=== PATIENT | female | born 1990 ===

== ENCOUNTER 2021-04-17 05:46 | Inpatient (IN) | payer SELFPAY ==
--- NOTE | 2021-04-17 06:19 | Emergency Department Report ---
ED General Adult HPI - General Chief complaint: Dyspnea/Respdistress Stated complaint: SOB, COVID+ TUESDAY Time Seen by Provider: 04/17/21 06:14 Source: patient Mode of arrival: Ambulatory Limitations: No Limitations - History of Present Illness Initial comments: Patient presents to the emergency department the chief complaint of increased shortness of breath for the last 3 days. Patient also complains of a cough but denies a fever. Patient states she is Covid positive and tested positive on Tuesday. Patient denies chest pain, carmen pain, headache. The patient is O2 sats are 89% on room air upon arrival. Oxygen was applied via nasal cannula. -: Gradual Severity scale (0 -10): 0 Consistency: constant Improves with: none Worsens with: movement Associated Symptoms: denies other symptoms Treatments Prior to Arrival: none - Related Data Allergies Allergy/AdvReac Type Severity Reaction Status Date / Time acetaminophen [From Tylenol] Allergy Unknown Verified 04/17/21 07:22 sumatriptan [From Imitrex] Allergy Unknown Verified 04/17/21 07:22 ED Review of Systems ROS: Stated complaint: SOB, COVID+ TUESDAY Other details as noted in HPI Comment: All other systems reviewed and negative Constitutional: denies: chills, fever Eyes: denies: eye pain, eye discharge, vision change ENT: denies: ear pain, throat pain Respiratory: shortness of breath. denies: cough, wheezing Cardiovascular: denies: chest pain, palpitations Endocrine: no symptoms reported Gastrointestinal: denies: abdominal pain, nausea, diarrhea Genitourinary: denies: urgency, dysuria, discharge Musculoskeletal: denies: back pain, joint swelling, arthralgia Skin: denies: rash, lesions Neurological: denies: headache, weakness, paresthesias Psychiatric: denies: anxiety, depression Hematological/Lymphatic: denies: easy bleeding, easy bruising ED Past Medical Hx - Past Medical History Previous Medical History?: No - Surgical History Past Surgical History?: No - Social History Smoking Status: Never Smoker ED Physical Exam - General Limitations: No Limitations General appearance: alert, in no apparent distress - Head Head exam: Present: atraumatic, normocephalic - Eye Eye exam: Present: normal appearance - ENT ENT exam: Present: mucous membranes moist - Neck Neck exam: Present: normal inspection - Respiratory Respiratory exam: Present: decreased breath sounds, other (Patient is tachypneic on exam). Absent: respiratory distress - Cardiovascular Cardiovascular Exam: Present: normal rhythm, tachycardia. Absent: systolic murmur, diastolic murmur, rubs, gallop - GI/Abdominal GI/Abdominal exam: Present: soft, normal bowel sounds. Absent: distended, tenderness - Extremities Exam Extremities exam: Present: normal inspection - Back Exam Back exam: Present: normal inspection - Neurological Exam Neurological exam: Present: alert, oriented X3, CN II-XII intact. Absent: motor sensory deficit - Psychiatric Psychiatric exam: Present: normal affect, normal mood - Skin Skin exam: Present: warm, dry, intact, normal color. Absent: rash ED Course Vital Signs 04/17/21 04/17/21 04/17/21 05:51 06:03 06:07 Temperature 98.3 F Pulse Rate 121 H 121 H Respiratory 28 H 31 H 37 H Rate Blood Pressure 154/91 106/62 O2 Sat by Pulse 92 95 Oximetry 04/17/21 04/17/21 04/17/21 06:15 06:31 06:45 Temperature Pulse Rate 111 H 118 H 116 H Respiratory 20 19 30 H Rate Blood Pressure 106/77 116/77 120/79 O2 Sat by Pulse 97 97 97 Oximetry 04/17/21 04/17/21 04/17/21 07:01 07:15 07:31 Temperature Pulse Rate 104 H 109 H 109 H Respiratory 31 H 11 L 28 H Rate Blood Pressure 115/82 116/77 134/79 O2 Sat by Pulse 96 97 96 Oximetry 04/17/21 04/17/21 04/17/21 07:45 08:01 08:15 Temperature Pulse Rate 105 H 103 H 101 H Respiratory 29 H 20 20 Rate Blood Pressure 121/82 118/81 119/81 O2 Sat by Pulse 96 96 97 Oximetry 04/17/21 04/17/21 04/17/21 08:31 08:45 09:00 Temperature Pulse Rate 101 H 103 H 103 H Respiratory 28 H 28 H 27 H Rate Blood Pressure 123/82 128/80 128/80 O2 Sat by Pulse 95 96 95 Oximetry 04/17/21 04/17/21 04/17/21 09:17 09:31 09:45 Temperature Pulse Rate 104 H 103 H Respiratory 13 18 Rate Blood Pressure 119/82 119/82 124/82 O2 Sat by Pulse 95 95 95 Oximetry 04/17/21 04/17/21 04/17/21 10:01 10:15 10:31 Temperature Pulse Rate 99 H 90 89 Respiratory 22 18 18 Rate Blood Pressure 119/82 115/85 112/66 O2 Sat by Pulse 97 96 97 Oximetry ED Medical Decision Making - Lab Data Result diagrams: 04/17/21 07:07 04/17/21 07:07 Lab Results 04/17/21 04/17/21 04/17/21 Range/Units 06:58 07:07 07:07 WBC 4.4 L (4.5-11.0) K/mm3 RBC 5.51 H (3.65-5.03) M/mm3 Hgb 15.8 H (10.1-14.3) gm/dl Hct 48.3 H (30.3-42.9) % MCV 88 (79-97) fl MCH 29 (28-32) pg MCHC 33 (30-34) % RDW 13.4 (13.2-15.2) % Plt Count 168 (140-440) K/mm3 Lymph % (Auto) 32.9 (13.4-35.0) % [place] % (Auto) 10.9 H (0.0-7.3) % Eos % (Auto) 0.0 (0.0-4.3) % Baso % (Auto) 0.3 (0.0-1.8) % Lymph # (Auto) 1.5 (1.2-5.4) K/mm3 [place] # (Auto) 0.5 (0.0-0.8) K/mm3 Eos # (Auto) 0.0 (0.0-0.4) K/mm3 Baso # (Auto) 0.0 (0.0-0.1) K/mm3 Seg Neutrophils % 55.9 (40.0-70.0) % Seg Neutrophils # 2.5 (1.8-7.7) K/mm3 PT 13.2 (12.2-14.9) Sec. INR 0.90 (0.87-1.13) APTT 31.5 (24.2-36.6) Sec. Sodium (137-145) mmol/L Potassium (3.6-5.0) mmol/L Chloride (98-107) mmol/L Carbon Dioxide (22-30) mmol/L Anion Gap mmol/L BUN (7-17) mg/dL Creatinine (0.6-1.2) mg/dL Estimated GFR ml/min BUN/Creatinine Ratio % Glucose (65-100) mg/dL Lactic Acid (0.7-2.0) mmol/L Calcium (8.4-10.2) mg/dL Magnesium (1.7-2.3) mg/dL Total Bilirubin (0.1-1.2) mg/dL AST (5-40) units/L ALT (7-56) units/L Alkaline Phosphatase (35-129) units/L Troponin T (0.00-0.029) ng/mL NT-Pro-B Natriuret Pep (0-450) pg/mL Total Protein (6.3-8.2) g/dL Albumin (3.9-5) g/dL Albumin/Globulin Ratio % Urine Color [place] (Yellow) Urine Turbidity Slightly-cloudy (Clear) Urine pH 6.0 (5.0-7.0) Ur Specific [place] 1.024 (1.003-1.030) Urine Protein 100 mg/dl (Negative) mg/dL Urine Glucose (UA) Neg (Negative) mg/dL Urine Ketones Tr (Negative) mg/dL Urine Blood Neg (Negative) Urine Nitrite Neg (Negative) Urine Bilirubin Neg (Negative) Urine Urobilinogen < 2.0 (<2.0) mg/dL Ur Leukocyte Esterase Neg (Negative) Urine WBC (Auto) 14.0 H (0.0-6.0) /HPF Urine RBC (Auto) 26.0 (0.0-6.0) /HPF U Epithel Cells (Auto) 24.0 H (0-13.0) /HPF Urine Bacteria (Auto) 2+ (Negative) /HPF Urine Yeast (Budding) Few /HPF 04/17/21 04/17/21 04/17/21 Range/Units 07:07 07:07 07:07 WBC (4.5-11.0) K/mm3 RBC (3.65-5.03) M/mm3 Hgb (10.1-14.3) gm/dl Hct (30.3-42.9) % MCV (79-97) fl MCH (28-32) pg MCHC (30-34) % RDW (13.2-15.2) % Plt Count (140-440) K/mm3 Lymph % (Auto) (13.4-35.0) % [place] % (Auto) (0.0-7.3) % Eos % (Auto) (0.0-4.3) % Baso % (Auto) (0.0-1.8) % Lymph # (Auto) (1.2-5.4) K/mm3 [place] # (Auto) (0.0-0.8) K/mm3 Eos # (Auto) (0.0-0.4) K/mm3 Baso # (Auto) (0.0-0.1) K/mm3 Seg Neutrophils % (40.0-70.0) % Seg Neutrophils # (1.8-7.7) K/mm3 PT (12.2-14.9) Sec. INR (0.87-1.13) APTT (24.2-36.6) Sec. Sodium 139 (137-145) mmol/L Potassium 4.4 (3.6-5.0) mmol/L Chloride 99.5 (98-107) mmol/L Carbon Dioxide 26 (22-30) mmol/L Anion Gap 18 mmol/L BUN 14 (7-17) mg/dL Creatinine 0.7 (0.6-1.2) mg/dL Estimated GFR > 60 ml/min BUN/Creatinine Ratio 20 % Glucose 128 H (65-100) mg/dL Lactic Acid 1.20 (0.7-2.0) mmol/L Calcium 8.8 (8.4-10.2) mg/dL Magnesium 2.10 (1.7-2.3) mg/dL Total Bilirubin 0.30 (0.1-1.2) mg/dL AST 42 H (5-40) units/L ALT 31 (7-56) units/L Alkaline Phosphatase 66 (35-129) units/L Troponin T < 0.010 (0.00-0.029) ng/mL NT-Pro-B Natriuret Pep < 5 (0-450) pg/mL Total Protein 8.2 (6.3-8.2) g/dL Albumin 4.1 (3.9-5) g/dL Albumin/Globulin Ratio 1.0 % Urine Color (Yellow) Urine Turbidity (Clear) Urine pH (5.0-7.0) Ur Specific [place] (1.003-1.030) Urine Protein (Negative) mg/dL Urine Glucose (UA) (Negative) mg/dL Urine Ketones (Negative) mg/dL Urine Blood (Negative) Urine Nitrite (Negative) Urine Bilirubin (Negative) Urine Urobilinogen (<2.0) mg/dL Ur Leukocyte Esterase (Negative) Urine WBC (Auto) (0.0-6.0) /HPF Urine RBC (Auto) (0.0-6.0) /HPF U Epithel Cells (Auto) (0-13.0) /HPF Urine Bacteria (Auto) (Negative) /HPF Urine Yeast (Budding) /HPF - Radiology Data Radiology results: report reviewed - Medical Decision Making Results discussed with patient Patient was given IV antibiotics Patient was placed on supplemental oxygen for low O2 sat Critical Care Time: Yes Critical care time in (mins) excluding proc time.: 35 Critical care attestation.: If time is entered above; I have spent that time in minutes in the direct care of this critically ill patient, excluding procedure time. ED Disposition Clinical Impression: Pneumonia due to COVID-19 virus, Hypoxia Disposition: 01 HOME / SELF CARE / HOMELESS Is pt being admited?: No Does the pt Need Aspirin: No Condition: Stable Instructions: Bacterial Pneumonia (ED)
--- NOTE | 2021-04-17 06:43 | XRay Report ---
CHEST 1 VIEW 04/17/2021 6:33 AM INDICATION / CLINICAL INFORMATION: Dyspnea. COMPARISON: None available. FINDINGS: SUPPORT DEVICES: None. HEART / MEDIASTINUM: No significant abnormality. LUNGS / PLEURA: Mild increased pulmonary vascularity with lower lobe atelectasis in the left No pneum othorax. Signer Name: Lee Best MD Signed: 04/17/2021 6:39 AM Workstation Name: [id number]
[2021-04-17] MEDS ORDERED: ONDANSETRON 4 MG/2 ML INJ IV ONE (07:18)
[2021-04-17 07:23] LABS: Bacteria,Urine 2+ /HPF (Negative); Bilirubin,Urine NEG (Negative); Blood,Urine NEG (Negative); Color,Urine Amber (Yellow); Urobilinogen,Urine < 2.0 mg/dL (<2.0)
[2021-04-17 08:01] LABS: Basophils % (Auto) 0.3 % (0.0-1.8); Hematocrit 48.3 % (30.3-42.9); Hemoglobin 15.8 gm/dl (10.1-14.3); Lymphocytes # (Auto) 1.5 K/mm3 (1.2-5.4); Lymphocytes % (Auto) 32.9 % (13.4-35.0); Mean Corpuscular HGB Conc 33 % (30-34); Mean Corpuscular Volume 88 fl (79-97); Monocytes # (Auto) 0.5 K/mm3 (0.0-0.8); Monocytes % (Auto) 10.9 % (0.0-7.3); Platelet Count 168 K/mm3 (140-440); Red Blood Count 5.51 M/mm3 (3.65-5.03); Red Cell Distribution Width 13.4 % (13.2-15.2)
[2021-04-17 08:10] LABS: INR 0.9 (0.87-1.13)
[2021-04-17 08:11] LABS: Partial Thromboplastin Time 31.5 Sec. (24.2-36.6)
[2021-04-17 08:25] LABS: Alanine Aminotransferase 31 units/L (7-56); Albumin 4.1 g/dL (3.9-5); Blood Urea Nitrogen 14 mg/dL (7-17); Calcium 8.8 mg/dL (8.4-10.2); Hemolysis Index 15
[2021-04-17 08:31] LABS: BUN/Creatinine Ratio 20
--- NOTE | 2021-04-17 09:44 | Cat Scan Report ---
CTA CHEST WITH CONTRAST INDICATION / CLINICAL INFORMATION: Shortness of breath / Chest pain / possible P.E. OMNI 350 100 ML. TECHNIQUE: Axial CT images were obtained through the chest after injection of 100 cc of Omnipaque 350 IV contrast. 3 plane MIP and/or 3D reconstructions were produced. All CT scans at this location are performed using CT dose reduction for ALARA by means of automated exposure control. COMPARISON: None available. FINDINGS: PULMONARY ARTERIES: No pulmonary emboli. THORACIC AORTA: No significant abnormality. HEART: No significant abnormality. CORONARY ARTERY CALCIFICATION: None. MEDIASTINUM / CARMEN: No significant abnormality. PLEURA: No pleural effusion. No pneumothorax. LUNGS: There is bilateral peripheral airspace opacity in the groundglass density with more focal cons olidation in the dependent lung bases. ADDITIONAL FINDINGS: None. UPPER ABDOMEN: No acute findings. SKELETAL STRUCTURES: No significant osseous abnormality. IMPRESSION: 1. No CT evidence for pulmonary embolism. 2. Predominantly peripheral parenchymal opacity in the lungs. This could represent pneumonitis includ ing atypical or viral pneumonia. Other etiologies such as eosinophilic lung disease is also considere d differential. Signer Name: Cornelio Haddad MD Signed: 04/17/2021 9:40 AM Workstation Name: [id number]
[2021-04-17] MEDS ORDERED: AZITHROMYCIN/NS 500 MG/250 ML 500 MG/250 ML BAG IV ONE (10:32)
[2021-04-17] MEDS ORDERED: cefTRIAXone/NS 1 GM/50 ML 1 GM/50 ML BAG IV ONE (10:33)
[2021-04-17] MEDS ORDERED: MORPHINE 4 MG/1 ML INJ IV PRN (11:11)
[2021-04-17] MEDS ORDERED: ACETAMINOPHEN 325 MG TAB PO PRN (11:11)
[2021-04-17] MEDS ORDERED: DOCUSATE SODIUM 100 MG CAP PO PRN (11:11)
[2021-04-17] MEDS ORDERED: HYDROcodone/ACETAMINOPHEN 5-325 MG TAB PO PRN (11:11)
[2021-04-17] MEDS ORDERED: SENNOSIDES 8.6 MG TAB PO PRN (11:11)
[2021-04-17] MEDS ORDERED: DEXTROSE 50% IN WATER (25GM) 50 ML SYRINGE IV PRN (11:11)
[2021-04-17] MEDS: INSULIN REGULAR, HUMAN 100 UNITS/1 ML SUB-Q SCH ×3 (12:03→23:27)
--- NOTE | 2021-04-17 14:10 | Consultation ---
History of Present Illness - Reason for Consult Consult date: 04/17/21 - History of Present Illness 30-year-old female past medical history morbid obesity, migraines presented to hospital complaining of shortness of breath. This began approximate 3 days prior to admission and is associated with cough. She denies fever. She knows she tested positive for Covid 5 days prior to admission. She otherwise denies any symptoms, and to be hypoxic arrival to the emergency room. Afebrile, white count 4.4. Normal renal function, pending procalcitonin. Currently receiving ceftriaxone, azithromycin, Decadron. Imaging personally reviewed: Chest CTA: No evidence of pulmonary embolism, probably peripheral parenchymal opacity in the lungs. Review of systems: Deferred to reduce to the risk of transmission of COVID-19 Past History Past Medical History: other (See HPI) Past Surgical History: No surgical history Social history: no significant social history Family history: CAD Medications and Allergies Allergies Allergy/AdvReac Type Severity Reaction Status Date / Time acetaminophen [From Tylenol] Allergy Unknown Verified 04/17/21 07:22 sumatriptan [From Imitrex] Allergy Unknown Verified 04/17/21 07:22 Active Meds: Active Medications Acetaminophen (Acetaminophen 325 Mg Tab) 650 mg PO Q4H PRN PRN Reason: Pain MILD(1-3)/Fever >100.5/PEREZ Hydrocodone Bitart/Acetaminophen (Hydrocodone/Acetaminophen 5-325 Mg Tab) 2 each PO Q6H PRN PRN Reason: Pain, Moderate (4-6) Azithromycin (Azithromycin 250 Mg Tab) 500 mg PO DAILY MATTHIAS; Protocol Stop: 04/20/21 09:59 Dexamethasone (Dexamethasone 4 Mg Tab) 8 mg PO DAILY MATTHIAS Stop: 04/26/21 10:01 Dextrose (Dextrose 50% In Water (25gm) 50 Ml Syringe) 50 ml IV Q30MIN PRN; Protocol PRN Reason: Hypoglycemia Docusate Sodium (Docusate Sodium 100 Mg Cap) 100 mg PO BID PRN PRN Reason: Constipation Enoxaparin Sodium (Enoxaparin 40 Mg/0.4 Ml Inj) 40 mg SUB-Q QDAY MATTHIAS Famotidine (Famotidine 20 Mg Tab) 20 mg PO BID MATTHIAS Ceftriaxone Sodium (Rocephin/Ns 1 Gm/50 Ml) 1 gm in 50 mls @ 100 mls/hr IV Q24H MATTHIAS; Protocol Stop: 04/20/21 11:59 Insulin Human Regular (Insulin Regular, Human 100 Units/1 Ml) 0 units SUB-Q ACHS MATTHIAS; Protocol Last Admin: 04/17/21 12:03 Dose: Not Given Documented by: Morphine Sulfate (Morphine 4 Mg/1 Ml Inj) 4 mg IV Q4H PRN PRN Reason: Pain , Severe (7-10) Ondansetron HCl (Ondansetron 4 Mg/2 Ml Inj) 4 mg IV Q8H PRN PRN Reason: Nausea And Vomiting Senna (Sennosides 8.6 Mg Tab) 8.6 mg PO Q12HR PRN PRN Reason: Constipation Sodium Chloride (Sodium Chloride 0.9% 10 Ml Flush Syringe) 10 ml IV BID MATTHIAS Sodium Chloride (Sodium Chloride 0.9% 10 Ml Flush Syringe) 10 ml IV PRN PRN PRN Reason: LINE FLUSH Physical Examination - Physical Exam Narrative exam: Physical exam deferred to reduce risk of transmission of COVID-19. Please refer to primary team's note. - Constitutional Vitals: Vital Signs Temp Pulse Resp BP Pulse Ox 98.3 F 102 H 24 107/86 95 04/17/21 05:51 04/17/21 13:01 04/17/21 13:01 04/17/21 13:01 04/17/21 13:01 Temperature -Last 24 Hours Temperature 98.3 F Results - Labs CBC & Chem 7: 04/17/21 07:07 04/17/21 07:07 Labs: Abnormal lab results 04/17/21 04/17/21 04/17/21 Range/Units 06:58 07:07 07:07 WBC 4.4 L (4.5-11.0) K/mm3 RBC 5.51 H (3.65-5.03) M/mm3 Hgb 15.8 H (10.1-14.3) gm/dl Hct 48.3 H (30.3-42.9) % [place] % (Auto) 10.9 H (0.0-7.3) % Glucose 128 H (65-100) mg/dL AST 42 H (5-40) units/L Urine WBC (Auto) 14.0 H (0.0-6.0) /HPF U Epithel Cells (Auto) 24.0 H (0-13.0) /HPF Assessment and Plan Cultures: Blood culture no growth so far A/P: 30-year-old female past medical history morbid obesity presented to the hospital complaining of shortness of breath with associated no patient COVID-19 diagnosis. #Severe COVID-19 pneumonia: Patient presented with a week of symptoms, chest x- ray with diffuse bilateral infiltrates. Inflammatory markers elevated #Acute hypoxemic respiratory failure: Likely secondary to COVID-19 infection. Currently on NC #Morbid obesity: associated with worse COVID outcomes. Recommendations: -Dexamethasone 6 mg IV/PO daily for 10 days -Remdesivir 200 mg IV q day x 1 followed by 100 mg IV q day x 4 days -Obtain q48-72h inflammatory markers - ferritin, Ddimer, CRP, LDH -Continue ceftriaxone 2 gm IV qday and azithromycin 500 mg PO qday, if procalcitonin <0.25 ng/mL stop antibiotics -Anticoagulation per hospital protocol -Proning as able Thank you for the consult, we will continue to follow. MD Shakila Kerns [facility] O: [phone] F: [phone]
--- NOTE | 2021-04-17 14:32 | History and Physical Report ---
History of Present Illness Date of examination: 04/17/21 Date of admission: 04/17/21 11:12 Chief complaint: Shortness of breath History of present illness: Patient is a 30-year-old female with no significant past medical history except morbid obesity who presented with worsening dyspnea at rest after testing positive for COVID-19 on 04/12/2021. The patient has not been vaccinated for COVID-19. The patient endorses managing her symptoms at home that included fa tigue, fevers (no chills), nausea and vomiting, mild abdominal pain, lightheadedness, and nonproductive cough. The patient presented for worsening lightheadedness and presyncopal symptoms. The patient's family members have also tested positive for COVID-19 and have been quarantining at home. Patient denies loss of smell or taste. In the ED the patient was found to be hypoxic and was placed on 3 L nasal cannula. Chest x-ray revealed diffuse pulmonary congestion (interstitium and vasculature) in addition to atelectasis. CTA chest was performed and was negative for pulmonary embolism but did reveal peripheral opacities. The patient received IV azithromycin 500 mg and Rocephin 1 g in the ED. Past History Past Medical History: other (See HPI) Past Surgical History: No surgical history Social history: no significant social history, full code Family history: CAD, diabetes, hypertension Medications and Allergies Allergies Allergy/AdvReac Type Severity Reaction Status Date / Time acetaminophen [From Tylenol] Allergy Unknown Verified 04/17/21 07:22 sumatriptan [From Imitrex] Allergy Unknown Verified 04/17/21 07:22 Active Meds: Active Medications Acetaminophen (Acetaminophen 325 Mg Tab) 650 mg PO Q4H PRN PRN Reason: Pain MILD(1-3)/Fever >100.5/PEREZ Hydrocodone Bitart/Acetaminophen (Hydrocodone/Acetaminophen 5-325 Mg Tab) 2 each PO Q6H PRN PRN Reason: Pain, Moderate (4-6) Azithromycin (Azithromycin 250 Mg Tab) 500 mg PO DAILY MATTHIAS; Protocol Stop: 04/20/21 09:59 Dexamethasone (Dexamethasone 4 Mg Tab) 8 mg PO DAILY MATTHIAS Stop: 04/26/21 10:01 Dextrose (Dextrose 50% In Water (25gm) 50 Ml Syringe) 50 ml IV Q30MIN PRN; Protocol PRN Reason: Hypoglycemia Docusate Sodium (Docusate Sodium 100 Mg Cap) 100 mg PO BID PRN PRN Reason: Constipation Enoxaparin Sodium (Enoxaparin 40 Mg/0.4 Ml Inj) 40 mg SUB-Q QDAY REPLACED BY [facility] Famotidine (Famotidine 20 Mg Tab) 20 mg PO BID REPLACED BY [facility] Ceftriaxone Sodium (Rocephin/Ns 1 Gm/50 Ml) 1 gm in 50 mls @ 100 mls/hr IV Q24H REPLACED BY [facility]; Protocol Stop: 04/20/21 11:59 REMDESIVIR 200 mg/ Sodium (Chloride) 250 mls @ 500 mls/hr IV ONCE ONE Stop: 04/17/21 14:39 REMDESIVIR 100 mg/ Sodium (Chloride) 250 mls @ 500 mls/hr IV Q24HR@2100 MATTHIAS Stop: 04/21/21 21:29 Insulin Human Regular (Insulin Regular, Human 100 Units/1 Ml) 0 units SUB-Q ACHS REPLACED BY [facility]; Protocol Last Admin: 04/17/21 12:03 Dose: Not Given Documented by: Morphine Sulfate (Morphine 4 Mg/1 Ml Inj) 4 mg IV Q4H PRN PRN Reason: Pain , Severe (7-10) Ondansetron HCl (Ondansetron 4 Mg/2 Ml Inj) 4 mg IV Q8H PRN PRN Reason: Nausea And Vomiting Senna (Sennosides 8.6 Mg Tab) 8.6 mg PO Q12HR PRN PRN Reason: Constipation Sodium Chloride (Sodium Chloride 0.9% 10 Ml Flush Syringe) 10 ml IV BID REPLACED BY [facility] Sodium Chloride (Sodium Chloride 0.9% 10 Ml Flush Syringe) 10 ml IV PRN PRN PRN Reason: LINE FLUSH Sodium Chloride (Sodium Chloride 0.9% 50 Ml Ivpb) 50 ml IV Q24HR@2100 MATTHIAS Stop: 04/21/21 21:01 Review of Systems All systems: negative Constitutional: fever, fatigue, weakness Cardiovascular: lightheadedness, shortness of breath, other (Chest pressure; presyncope) Respiratory: cough, shortness of breath Gastrointestinal: nausea, vomiting Exam - Constitutional Vitals: Temp Pulse Resp BP Pulse Ox 98.3 F 100 H 20 116/78 96 04/17/21 05:51 04/17/21 14:15 04/17/21 14:15 04/17/21 14:15 04/17/21 14:15 General appearance: Present: no acute distress, well-nourished, obese - EENT Eyes: Present: PERRL, EOM intact ENT: hearing intact, clear oral mucosa, dentition normal - Neck Neck: Present: supple, normal ROM - Respiratory Respiratory effort: normal (Currently on 3 L nasal cannula) Respiratory: bilateral: diminished - Cardiovascular Rhythm: regular Heart Sounds: Present: S1 & S2 - Extremities Extremities: no ischemia, pulses intact, pulses symmetrical, No edema, normal temperature, normal color Peripheral Pulses: within normal limits - Abdominal General gastrointestinal: Present: soft, non-tender, non-distended, normal bowel sounds Female genitourinary: Present: deferred - Rectal Rectal Exam: deferred - Integumentary Integumentary: Present: clear, warm, dry - Musculoskeletal Musculoskeletal: strength equal bilaterally - Psychiatric Psychiatric: appropriate mood/affect, intact judgment & insight, memory intact, cooperative - Neurologic Neurologic: CNII-XII intact, moves all extremities - Allied Health Allied health notes reviewed: nursing HEART Score - HEART Score Troponin: Troponin T < 0.010 ng/mL (0.00-0.029) 04/17/21 07:07 Results - Labs CBC & Chem 7: 04/17/21 07:07 04/17/21 07:07 Labs: Laboratory Last Values WBC 4.4 K/mm3 (4.5-11.0) L 04/17/21 07:07 RBC 5.51 M/mm3 (3.65-5.03) H 04/17/21 07:07 Hgb 15.8 gm/dl (10.1-14.3) H 04/17/21 07:07 Hct 48.3 % (30.3-42.9) H 04/17/21 07:07 MCV 88 fl (79-97) 04/17/21 07:07 MCH 29 pg (28-32) 04/17/21 07:07 MCHC 33 % (30-34) 04/17/21 07:07 RDW 13.4 % (13.2-15.2) 04/17/21 07:07 Plt Count 168 K/mm3 (140-440) 04/17/21 07:07 Lymph % (Auto) 32.9 % (13.4-35.0) 04/17/21 07:07 [place] % (Auto) 10.9 % (0.0-7.3) H 04/17/21 07:07 Eos % (Auto) 0.0 % (0.0-4.3) 04/17/21 07:07 Baso % (Auto) 0.3 % (0.0-1.8) 04/17/21 07:07 Lymph # (Auto) 1.5 K/mm3 (1.2-5.4) 04/17/21 07:07 Ector # (Auto) 0.5 K/mm3 (0.0-0.8) 04/17/21 07:07 Eos # (Auto) 0.0 K/mm3 (0.0-0.4) 04/17/21 07:07 Baso # (Auto) 0.0 K/mm3 (0.0-0.1) 04/17/21 07:07 Seg Neutrophils % 55.9 % (40.0-70.0) 04/17/21 07:07 Seg Neutrophils # 2.5 K/mm3 (1.8-7.7) 04/17/21 07:07 PT 13.2 Sec. (12.2-14.9) 04/17/21 07:07 INR 0.90 (0.87-1.13) 04/17/21 07:07 APTT 31.5 Sec. (24.2-36.6) 04/17/21 07:07 Sodium 139 mmol/L (137-145) 04/17/21 07:07 Potassium 4.4 mmol/L (3.6-5.0) 04/17/21 07:07 Chloride 99.5 mmol/L (98-107) 04/17/21 07:07 Carbon Dioxide 26 mmol/L (22-30) 04/17/21 07:07 Anion Gap 18 mmol/L 04/17/21 07:07 BUN 14 mg/dL (7-17) 04/17/21 07:07 Creatinine 0.7 mg/dL (0.6-1.2) 04/17/21 07:07 Estimated GFR > 60 ml/min 04/17/21 07:07 BUN/Creatinine Ratio 20 % 04/17/21 07:07 Glucose 128 mg/dL (65-100) H 04/17/21 07:07 Lactic Acid 1.20 mmol/L (0.7-2.0) 04/17/21 07:07 Calcium 8.8 mg/dL (8.4-10.2) 04/17/21 07:07 Magnesium 2.10 mg/dL (1.7-2.3) 04/17/21 07:07 Total Bilirubin 0.30 mg/dL (0.1-1.2) 04/17/21 07:07 AST 42 units/L (5-40) H 04/17/21 07:07 ALT 31 units/L (7-56) 04/17/21 07:07 Alkaline Phosphatase 66 units/L (35-129) 04/17/21 07:07 Troponin T < 0.010 ng/mL (0.00-0.029) 04/17/21 07:07 NT-Pro-B Natriuret Pep < 5 pg/mL (0-450) 04/17/21 07:07 Total Protein 8.2 g/dL (6.3-8.2) 04/17/21 07:07 Albumin 4.1 g/dL (3.9-5) 04/17/21 07:07 Albumin/Globulin Ratio 1.0 % 04/17/21 07:07 Urine Color Francheska (Yellow) 04/17/21 06:58 Urine Turbidity Slightly-cloudy (Clear) 04/17/21 06:58 Urine pH 6.0 (5.0-7.0) 04/17/21 06:58 Ur Specific [place] 1.024 (1.003-1.030) 04/17/21 06:58 Urine Protein 100 mg/dl mg/dL (Negative) 04/17/21 06:58 Urine Glucose (UA) Neg mg/dL (Negative) 04/17/21 06:58 Urine Ketones Tr mg/dL (Negative) 04/17/21 06:58 Urine Blood Neg (Negative) 04/17/21 06:58 Urine Nitrite Neg (Negative) 04/17/21 06:58 Urine Bilirubin Neg (Negative) 04/17/21 06:58 Urine Urobilinogen < 2.0 mg/dL (<2.0) 04/17/21 06:58 Ur Leukocyte Esterase Neg (Negative) 04/17/21 06:58 Urine WBC (Auto) 14.0 /HPF (0.0-6.0) H 04/17/21 06:58 Urine RBC (Auto) 26.0 /HPF (0.0-6.0) 04/17/21 06:58 U Epithel Cells (Auto) 24.0 /HPF (0-13.0) H 04/17/21 06:58 Urine Bacteria (Auto) 2+ /HPF (Negative) 04/17/21 06:58 Urine Yeast (Budding) Few /HPF 04/17/21 06:58 Microbiology: Microbiology 04/17/21 07:07 Peripheral/Venous Blood Culture - Preliminary Culture in Progress 04/17/21 07:07 Peripheral/Venous Blood Culture - Preliminary Culture in Progress Assessment and Plan Assessment and plan: Patient is a 30-year-old female with no significant past medical history except morbid obesity who presented with worsening dyspnea at rest after testing positive for COVID-19 on 04/12/2021. #COVID-19 pneumonia #Acute hypoxic respiratory failure #Possible community-acquired pneumonia -Pending coronavirus PCR -Currently on 3 L nasal cannula. -Chest x-ray revealing pulmonary congestion (interstitium and vasculature) in addition to atelectasis. CTA chest negative for PE but revealing peripheral opacities. -Status post IV azithromycin 500 mg x 1 + Rocephin 1 g x 1 in the ED. Continue p.o. azithromycin 500 mg every 24 hours and Rocephin 1 g every 24 hours for a total of 3-day course (ends 04/19/2021). Can discontinue earlier if procalcitonin is within normal limits. -Blood cultures drawn and ED. -Starting p.o. dexamethasone 8 mg every 24 hours for 10-day course (111/). -Infectious disease consulted; appreciate recs. Starting remdesivir for 5-day course (ends 04/21/2021). -Following ferritin, LDH, CRP, and D-dimer levels -Continue to monitor #Asymptomatic bacteriuria -UA revealing negative nitrites and leukocyte esterase. WBC 14 and 2+ bacteria. -Status post Rocephin 1 g in the ED. Will be treated with Rocephin therapy for presumed community-acquired pneumonia. -Continue to monitor #Hyperglycemia -Glucose 128 -Pending hemoglobin A1c -Continue to monitor #Morbid obesity #Weight loss counseling #Dietary counseling -BMI 41 -Counseled patient about weight loss, dietary changes (lean meats, fresh fruits and vegetables, increased water intake, etc.), and incorporating exercise. Patient expressed understanding. -Time: +15 minutes #Advanced care planning -Disease education conducted, care plan discussed, diagnoses discussed, prognosis discussed, and patient acknowledges understanding with care plan -Time: +20 minutes Advance Directives: No VTE prophylaxis?: Chemical Plan of care discussed with patient/family: Yes
[2021-04-17] MEDS ORDERED: REMDESIVIR 200 MG in SODIUM CHLORIDE 0.9% 250ML 250 ML IV ONE (16:00)
[2021-04-17] MEDS: ONDANSETRON 4 MG/2 ML INJ IV PRN (16:21)
[2021-04-17] MEDS: DEXAMETHASONE 4 MG TAB PO SCH (16:21)
[2021-04-17] MEDS ORDERED: ENOXAPARIN 30 MG/0.3 ML INJ SUB-Q SCH (17:00)
[2021-04-17] MEDS: SODIUM CHLORIDE 0.9% 50 ML IVPB IV SCH (21:06)
[2021-04-17] MEDS: FAMOTIDINE 20 MG TAB PO SCH (23:26)
[2021-04-18] MEDS ORDERED: ALUM-MAG HYDROXIDE-SIMETHICONE 200-200-20MG/5ML ORAL LIQD 30 ML PO PRN (04:45)
[2021-04-18 07:51] LABS: Hematocrit 43.9 % (30.3-42.9); Hemoglobin 14.4 gm/dl (10.1-14.3); Mean Corpuscular HGB Conc 33 % (30-34); Mean Corpuscular Volume 89 fl (79-97); Platelet Count 179 K/mm3 (140-440); Red Blood Count 4.96 M/mm3 (3.65-5.03); Red Cell Distribution Width 13.1 % (13.2-15.2)
[2021-04-18 08:13] LABS: Alanine Aminotransferase 31 units/L (7-56); Albumin 3.8 g/dL (3.9-5); BUN/Creatinine Ratio 28; Blood Urea Nitrogen 14 mg/dL (7-17); Calcium 8.6 mg/dL (8.4-10.2); Hemolysis Index 3
[2021-04-18 08:14] LABS: C-Reactive Protein 1.4 mg/dL (0.00-1.30); Chol/HDL Ratio 3.1 %
[2021-04-18] MEDS: INSULIN REGULAR, HUMAN 100 UNITS/1 ML SUB-Q SCH ×4 (08:47→22:18)
[2021-04-18 09:33] LABS: Band Neutrophils # (Manual) 0.1 K/mm3; Total Cells Counted 100
[2021-04-18 09:34] LABS: Anisocytosis 1+
[2021-04-18] MEDS: DEXAMETHASONE 4 MG TAB PO SCH (11:01)
[2021-04-18] MEDS: AZITHROMYCIN 250 MG TAB PO SCH (11:01)
[2021-04-18] MEDS: ENOXAPARIN 40 MG/0.4 ML INJ SUB-Q SCH (11:01)
[2021-04-18] MEDS: FAMOTIDINE 20 MG TAB PO SCH ×2 (11:02→21:02)
--- NOTE | 2021-04-18 11:34 | Progress Note ---
Assessment and Plan Assessment and plan: Patient is a 30-year-old female with no significant past medical history except morbid obesity who presented with worsening dyspnea at rest after testing positive for COVID-19 on 04/12/2021. #COVID-19 pneumonia #Acute hypoxic respiratory failure-worsening #Possible community-acquired pneumonia -Pending coronavirus PCR -Currently on high flow nasal cannula 15 L -Chest x-ray revealing pulmonary congestion (interstitium and vasculature) in addition to atelectasis. CTA chest negative for PE but revealing peripheral opacities. -Status post IV azithromycin 500 mg x 1 + Rocephin 1 g x 1 in the ED. Continue p.o. azithromycin 500 mg every 24 hours and Rocephin 1 g every 24 hours for a total of 3-day course (ends 04/19/2021). Can discontinue earlier if procalcitonin is within normal limits. -Pending blood cultures drawn from presentation; NG TD x1 day -Continue p.o. dexamethasone 8 mg every 24 hours for 10-day course (111/). -Infectious disease consulted; appreciate recs. Continue remdesivir for 5-day course (ends 04/21/2021). -Following ferritin, LDH, CRP, and D-dimer levels -Continue to monitor #Asymptomatic bacteriuria -UA revealing negative nitrites and leukocyte esterase. WBC 14 and 2+ bacteria. -Status post Rocephin 1 g in the ED. Will be treated with Rocephin therapy for presumed community-acquired pneumonia. -Continue to monitor #Hyperglycemia -Glucose 128 -Pending hemoglobin A1c -Continue to monitor #Morbid obesity #Weight loss counseling #Dietary counseling -BMI 41 -Counseled patient about weight loss, dietary changes (lean meats, fresh fruits and vegetables, increased water intake, etc.), and incorporating exercise. Patient expressed understanding. -Time: +15 minutes #Advanced care planning -Disease education conducted, care plan discussed, diagnoses discussed, prognosis discussed, and patient acknowledges understanding with care plan -Time: +20 minutes Disposition Plan: Continue medical management Total Time Spent with Patient (Minutes): 30 minutes History Interval history: Patient now requires higher amounts of supplemental oxygen. Patient currently on high flow 15 L. Hospitalist Physical - Constitutional Vitals: Temp Pulse Resp BP Pulse Ox 98.1 F 79 18 107/74 94 04/18/21 04:33 04/18/21 04:33 04/18/21 04:41 04/18/21 04:33 04/18/21 04:41 General appearance: Present: no acute distress, well-nourished, obese - EENT Eyes: Present: PERRL, EOM intact ENT: hearing intact, clear oral mucosa, dentition normal - Neck Neck: Present: supple, normal ROM - Respiratory Respiratory effort: normal Respiratory: bilateral: diminished - Cardiovascular Rhythm: regular Heart Sounds: Present: S1 & S2 - Extremities Extremities: no ischemia, pulses intact, pulses symmetrical, No edema, normal temperature, normal color Peripheral Pulses: within normal limits - Abdominal General gastrointestinal: soft, non-tender, non-distended, normal bowel sounds - Integumentary Integumentary: Present: clear, warm, dry - Psychiatric Psychiatric: appropriate mood/affect, intact judgment & insight, memory intact, cooperative - Neurologic Neurologic: CNII-XII intact, moves all extremities - Allied Health Allied health notes reviewed: nursing HEART Score - HEART Score Troponin: Troponin T < 0.010 ng/mL (0.00-0.029) 04/17/21 07:07 Results - Labs CBC & Chem 7: 04/18/21 07:05 04/18/21 07:15 Labs: Laboratory Last Values WBC 2.1 K/mm3 (4.5-11.0) L 04/18/21 07:05 RBC 4.96 M/mm3 (3.65-5.03) 04/18/21 07:05 Hgb 14.4 gm/dl (10.1-14.3) H 04/18/21 07:05 Hct 43.9 % (30.3-42.9) H 04/18/21 07:05 MCV 89 fl (79-97) 04/18/21 07:05 MCH 29 pg (28-32) 04/18/21 07:05 MCHC 33 % (30-34) 04/18/21 07:05 RDW 13.1 % (13.2-15.2) L 04/18/21 07:05 Plt Count 179 K/mm3 (140-440) 04/18/21 07:05 Lymph % (Auto) 32.9 % (13.4-35.0) 04/17/21 07:07 [place] % (Auto) 10.9 % (0.0-7.3) H 04/17/21 07:07 Eos % (Auto) 0.0 % (0.0-4.3) 04/17/21 07:07 Baso % (Auto) 0.3 % (0.0-1.8) 04/17/21 07:07 Lymph # (Auto) 1.5 K/mm3 (1.2-5.4) 04/17/21 07:07 [place] # (Auto) 0.5 K/mm3 (0.0-0.8) 04/17/21 07:07 Eos # (Auto) 0.0 K/mm3 (0.0-0.4) 04/17/21 07:07 Baso # (Auto) 0.0 K/mm3 (0.0-0.1) 04/17/21 07:07 Add Manual Diff Complete 04/18/21 07:05 Total Counted 100 04/18/21 07:05 Seg Neutrophils % 55.9 % (40.0-70.0) 04/17/21 07:07 Seg Neuts % (Manual) 40.0 % (40.0-70.0) 04/18/21 07:05 Band Neutrophils % 3.0 % 04/18/21 07:05 Lymphocytes % (Manual) 44.0 % (13.4-35.0) H 04/18/21 07:05 Monocytes % (Manual) 13.0 % (0.0-7.3) H 04/18/21 07:05 Nucleated RBC % Not Reportable 04/18/21 07:05 Seg Neutrophils # 2.5 K/mm3 (1.8-7.7) 04/17/21 07:07 Seg Neutrophils # Man 0.8 K/mm3 (1.8-7.7) L 04/18/21 07:05 Band Neutrophils # 0.1 K/mm3 04/18/21 07:05 Lymphocytes # (Manual) 0.9 K/mm3 (1.2-5.4) L 04/18/21 07:05 Abs React Lymphs (Man) 0.0 K/mm3 04/18/21 07:05 Monocytes # (Manual) 0.3 K/mm3 (0.0-0.8) 04/18/21 07:05 Eosinophils # (Manual) 0.0 K/mm3 (0.0-0.4) 04/18/21 07:05 Basophils # (Manual) 0.0 K/mm3 (0.0-0.1) 04/18/21 07:05 Metamyelocytes # 0.0 K/mm3 04/18/21 07:05 Myelocytes # 0.0 K/mm3 04/18/21 07:05 Promyelocytes # 0.0 K/mm3 04/18/21 07:05 Blast Cells # 0.0 K/mm3 04/18/21 07:05 WBC Morphology Not Reportable 04/18/21 07:05 Hypersegmented Neuts Not Reportable 04/18/21 07:05 Hyposegmented Neuts Not Reportable 04/18/21 07:05 Hypogranular Neuts Not Reportable 04/18/21 07:05 Smudge Cells Not Reportable 04/18/21 07:05 Toxic Granulation Not Reportable 04/18/21 07:05 Toxic Vacuolation Not Reportable 04/18/21 07:05 Dohle Bodies Not Reportable 04/18/21 07:05 Pelger-Huet Anomaly Not Reportable 04/18/21 07:05 Kenney Rods Not Reportable 04/18/21 07:05 Platelet Estimate Not Reportable 04/18/21 07:05 Clumped Platelets Not Reportable 04/18/21 07:05 Plt Clumps, EDTA Not Reportable 04/18/21 07:05 Large Platelets Not Reportable 04/18/21 07:05 Giant Platelets Not Reportable 04/18/21 07:05 Platelet Satelliting Not Reportable 04/18/21 07:05 Plt Morphology Comment Not Reportable 04/18/21 07:05 RBC Morphology Not Reportable 04/18/21 07:05 Dimorphic RBCs Not Reportable 04/18/21 07:05 Polychromasia Not Reportable 04/18/21 07:05 Hypochromasia Not Reportable 04/18/21 07:05 Poikilocytosis Not Reportable 04/18/21 07:05 Anisocytosis 1+ 04/18/21 07:05 Microcytosis Not Reportable 04/18/21 07:05 Macrocytosis Not Reportable 04/18/21 07:05 Spherocytes Not Reportable 04/18/21 07:05 Pappenheimer Bodies Not Reportable 04/18/21 07:05 Sickle Cells Not Reportable 04/18/21 07:05 Target Cells Not Reportable 04/18/21 07:05 Tear Drop Cells Not Reportable 04/18/21 07:05 Ovalocytes Not Reportable 04/18/21 07:05 Helmet Cells Not Reportable 04/18/21 07:05 Garcia-Canova Bodies Not Reportable 04/18/21 07:05 [employer] Rings Not Reportable 04/18/21 07:05 Yolanda Cells Not Reportable 04/18/21 07:05 Bite Cells Not Reportable 04/18/21 07:05 Crenated Cell Not Reportable 04/18/21 07:05 Elliptocytes Not Reportable 04/18/21 07:05 Acanthocytes (Spur) Not Reportable 04/18/21 07:05 Rouleaux Not Reportable 04/18/21 07:05 Hemoglobin C Crystals Not Reportable 04/18/21 07:05 Schistocytes Not Reportable 04/18/21 07:05 Malaria parasites Not Reportable 04/18/21 07:05 Rodrigo Bodies Not Reportable 04/18/21 07:05 Hem Pathologist Commnt No 04/18/21 07:05 PT 13.2 Sec. (12.2-14.9) 04/17/21 07:07 INR 0.90 (0.87-1.13) 04/17/21 07:07 APTT 31.5 Sec. (24.2-36.6) 04/17/21 07:07 D-Dimer 734.44 ng/mlDDU (0-234) H 04/18/21 07:15 Sodium 138 mmol/L (137-145) 04/18/21 07:15 Potassium 4.3 mmol/L (3.6-5.0) 04/18/21 07:15 Chloride 101.2 mmol/L (98-107) 04/18/21 07:15 Carbon Dioxide 24 mmol/L (22-30) 04/18/21 07:15 Anion Gap 17 mmol/L 04/18/21 07:15 BUN 14 mg/dL (7-17) 04/18/21 07:15 Creatinine 0.5 mg/dL (0.6-1.2) L 04/18/21 07:15 Estimated GFR > 60 ml/min 04/18/21 07:15 BUN/Creatinine Ratio 28 % 04/18/21 07:15 Glucose 135 mg/dL (65-100) H 04/18/21 07:15 POC Glucose 146 mg/dL (70-105) H 04/17/21 23:25 Hemoglobin A1c 6.0 % (4-6) 04/18/21 07:05 Lactic Acid 1.20 mmol/L (0.7-2.0) 04/17/21 07:07 Calcium 8.6 mg/dL (8.4-10.2) 04/18/21 07:15 Phosphorus 3.70 mg/dL (2.5-4.5) 04/18/21 07:05 Magnesium 2.10 mg/dL (1.7-2.3) 04/18/21 07:05 Ferritin 323.6 ng/mL (10.0-200.0) H 04/18/21 07:15 Total Bilirubin 0.30 mg/dL (0.1-1.2) 04/18/21 07:15 AST 36 units/L (5-40) 04/18/21 07:15 ALT 31 units/L (7-56) 04/18/21 07:15 Alkaline Phosphatase 61 units/L (35-129) 04/18/21 07:15 Lactate Dehydrogenase 315 units/L (91-180) H 04/18/21 07:05 Troponin T < 0.010 ng/mL (0.00-0.029) 04/17/21 07:07 C-Reactive Protein 1.40 mg/dL (0.00-1.30) H 04/18/21 07:05 NT-Pro-B Natriuret Pep < 5 pg/mL (0-450) 04/17/21 07:07 Total Protein 7.5 g/dL (6.3-8.2) 04/18/21 07:15 Albumin 3.8 g/dL (3.9-5) L 04/18/21 07:15 Albumin/Globulin Ratio 1.0 % 04/18/21 07:15 Triglycerides 48 mg/dL (2-149) 04/18/21 07:05 Cholesterol 87 mg/dL (50-199) 04/18/21 07:05 LDL Cholesterol Direct 42 mg/dL (50-130) L 04/18/21 07:05 HDL Cholesterol 28 mg/dL (40-59) L 04/18/21 07:05 Cholesterol/HDL Ratio 3.10 % 04/18/21 07:05 Urine Color Francheska (Yellow) 04/17/21 06:58 Urine Turbidity Slightly-cloudy (Clear) 04/17/21 06:58 Urine pH 6.0 (5.0-7.0) 04/17/21 06:58 Ur Specific [place] 1.024 (1.003-1.030) 04/17/21 06:58 Urine Protein 100 mg/dl mg/dL (Negative) 04/17/21 06:58 Urine Glucose (UA) Neg mg/dL (Negative) 04/17/21 06:58 Urine Ketones Tr mg/dL (Negative) 04/17/21 06:58 Urine Blood Neg (Negative) 04/17/21 06:58 Urine Nitrite Neg (Negative) 04/17/21 06:58 Urine Bilirubin Neg (Negative) 04/17/21 06:58 Urine Urobilinogen < 2.0 mg/dL (<2.0) 04/17/21 06:58 Ur Leukocyte Esterase Neg (Negative) 04/17/21 06:58 Urine WBC (Auto) 14.0 /HPF (0.0-6.0) H 04/17/21 06:58 Urine RBC (Auto) 26.0 /HPF (0.0-6.0) 04/17/21 06:58 U Epithel Cells (Auto) 24.0 /HPF (0-13.0) H 04/17/21 06:58 Urine Bacteria (Auto) 2+ /HPF (Negative) 04/17/21 06:58 Urine Yeast (Budding) Few /HPF 04/17/21 06:58 Coronavirus (PCR) Positive (Negative) A 04/17/21 Unknown Microbiology: Microbiology 04/17/21 07:07 Peripheral/Venous Blood Culture - Preliminary NO GROWTH AFTER 24 HOURS 04/17/21 07:07 Peripheral/Venous Blood Culture - Preliminary NO GROWTH AFTER 24 HOURS 04/17/21 Unknown Urine,Clean Catch Urine Culture - Preliminary NO GROWTH AFTER 24 HOURS Colindres/IV: Voiding Method Toilet Active Medications - Current Medications Current Medications: Generic Name Dose Route Start Last Admin Trade Name Freq PRN Reason Stop Dose Admin Al Hydrox/Mg Hydrox/Simethicone 30 ml 04/18/21 04:45 04/18/21 05:28 Alum-Mag Hydroxide-Simethicone [id number] Oral Liqd 30 Ml PO 30 ml Q6H PRN Administration Indigestion Azithromycin 500 mg 04/18/21 10:00 04/18/21 11:01 Azithromycin 250 Mg Tab PO 04/20/21 09:59 500 mg DAILY MATTHIAS Administration Protocol Dexamethasone 8 mg 04/17/21 16:00 04/18/21 11:01 Dexamethasone 4 Mg Tab PO 04/26/21 10:01 8 mg DAILY MATTHIAS Administration Dextrose 50 ml 04/17/21 11:11 Dextrose 50% In Water (25gm) 50 Ml Syringe IV Q30MIN PRN Hypoglycemia Protocol Docusate Sodium 100 mg 04/17/21 11:11 Docusate Sodium 100 Mg Cap PO BID PRN Constipation Enoxaparin Sodium 40 mg 04/18/21 10:00 04/18/21 11:01 Enoxaparin 40 Mg/0.4 Ml Inj SUB-Q 40 mg QDAY MATTHIAS Administration Famotidine 20 mg 04/17/21 22:00 04/18/21 11:02 Famotidine 20 Mg Tab PO 20 mg BID MATTHIAS Administration Ceftriaxone Sodium 1 gm in 50 mls @ 100 mls/hr 04/18/21 12:00 Rocephin/Ns 1 Gm/50 Ml IV 04/20/21 11:59 Q24H [facility] Protocol REMDESIVIR 100 mg/ Sodium 250 mls @ 500 mls/hr 04/18/21 21:00 Chloride IV 04/21/21 21:29 Q24HR@2100 [facility] Insulin Human Regular 0 units 04/17/21 12:00 04/18/21 08:47 Insulin Regular, Human 100 Units/1 Ml SUB-Q Not Given ACHS [facility] Protocol Morphine Sulfate 4 mg 04/17/21 11:11 Morphine 4 Mg/1 Ml Inj IV Q4H PRN Pain , Severe (7-10) Ondansetron HCl 4 mg 04/17/21 11:11 04/17/21 16:21 Ondansetron 4 Mg/2 Ml Inj IV 4 mg Q8H PRN Administration Nausea And Vomiting Senna 8.6 mg 04/17/21 11:11 Sennosides 8.6 Mg Tab PO Q12HR PRN Constipation Sodium Chloride 10 ml 04/17/21 22:00 04/18/21 11:02 Sodium Chloride 0.9% 10 Ml Flush Syringe IV 10 ml BID MATTHIAS Administration Sodium Chloride 10 ml 04/17/21 11:11 Sodium Chloride 0.9% 10 Ml Flush Syringe IV PRN PRN LINE FLUSH Sodium Chloride 50 ml 04/17/21 21:00 04/17/21 21:06 Sodium Chloride 0.9% 50 Ml Ivpb IV 04/21/21 21:01 50 ml Q24HR@2100 MATTHIAS Administration
[2021-04-18] MEDS: cefTRIAXone/NS 1 GM/50 ML 1 GM/50 ML BAG IV SCH (12:53)
[2021-04-18] MEDS: ONDANSETRON 4 MG/2 ML INJ IV PRN (12:56)
[2021-04-18] MEDS: SODIUM CHLORIDE 0.9% 50 ML IVPB IV SCH (21:02)
[2021-04-18] MEDS: REMDESIVIR 100 MG in SODIUM CHLORIDE 0.9% 250ML 250 ML IV SCH (21:02)
[2021-04-19 07:28] LABS: Basophils % (Auto) 0.4 % (0.0-1.8); Hematocrit 42.7 % (30.3-42.9); Hemoglobin 14.7 gm/dl (10.1-14.3); Lymphocytes # (Auto) 1.3 K/mm3 (1.2-5.4); Mean Corpuscular HGB Conc 35 % (30-34); Mean Corpuscular Volume 86 fl (79-97); Monocytes # (Auto) 0.7 K/mm3 (0.0-0.8); Monocytes % (Auto) 13.4 % (0.0-7.3); Platelet Count 201 K/mm3 (140-440); Red Blood Count 4.96 M/mm3 (3.65-5.03); Red Cell Distribution Width 12.6 % (13.2-15.2)
[2021-04-19 08:00] LABS: Alanine Aminotransferase 36 units/L (7-56); Albumin 3.8 g/dL (3.9-5); Blood Urea Nitrogen 13 mg/dL (7-17); Calcium 8.6 mg/dL (8.4-10.2); Hemolysis Index 6
[2021-04-19 08:05] LABS: BUN/Creatinine Ratio 26
[2021-04-19] MEDS: INSULIN REGULAR, HUMAN 100 UNITS/1 ML SUB-Q SCH ×4 (08:30→22:10)
[2021-04-19] MEDS: DEXAMETHASONE 4 MG TAB PO SCH (10:16)
[2021-04-19] MEDS: FAMOTIDINE 20 MG TAB PO SCH ×2 (10:16→22:10)
[2021-04-19] MEDS: AZITHROMYCIN 250 MG TAB PO SCH (10:16)
[2021-04-19] MEDS: ENOXAPARIN 40 MG/0.4 ML INJ SUB-Q SCH (10:16)
--- NOTE | 2021-04-19 12:18 | Progress Note ---
Assessment and Plan Assessment and plan: Patient is a 30-year-old female with no significant past medical history except morbid obesity who presented with worsening dyspnea at rest after testing positive for COVID-19 on 04/12/2021. #COVID-19 pneumonia #Acute hypoxic respiratory failure-improving #Possible community-acquired pneumonia-resolved -Coronavirus PCR positive -Currently on high flow nasal cannula 10L -Chest x-ray revealing pulmonary congestion (interstitium and vasculature) in addition to atelectasis. CTA chest negative for PE but revealing peripheral opacities. -Completed IV antibiotic course for CAP. Will receive the last dose of Rocephin today. -Pending blood cultures drawn from presentation; NGTD x3 day -Continue p.o. dexamethasone 8 mg every 24 hours for 10-day course (/). -Infectious disease consulted; appreciate recs. Continue remdesivir for 5-day course (ends 04/21/2021). -Following ferritin, LDH, CRP, and D-dimer levels -Continue to monitor #Asymptomatic bacteriuria -UA revealing negative nitrites and leukocyte esterase. WBC 14 and 2+ bacteria. -Status post Rocephin 1 g in the ED. Will be treated with Rocephin therapy for presumed community-acquired pneumonia. -Continue to monitor #Hyperglycemia -Glucose 128 -Likely secondary to steroid administration. -Pending hemoglobin A1c -Continue to monitor #Morbid obesity #Weight loss counseling #Dietary counseling -BMI 41 -Counseled patient about weight loss, dietary changes (lean meats, fresh fruits and vegetables, increased water intake, etc.), and incorporating exercise. Patient expressed understanding. -Time: +15 minutes #Advanced care planning -Disease education conducted, care plan discussed, diagnoses discussed, prognosis discussed, and patient acknowledges understanding with care plan -Time: +20 minutes Disposition Plan: Continue medical management Total Time Spent with Patient (Minutes): 40 History Interval history: No acute events overnight. Hospitalist Physical - Constitutional Vitals: Temp Pulse Resp BP Pulse Ox 98.3 F 65 18 105/62 97 04/19/21 11:42 04/19/21 11:42 04/19/21 11:42 04/19/21 11:42 04/19/21 11:42 General appearance: Present: no acute distress, well-nourished, obese - EENT Eyes: Present: PERRL, EOM intact ENT: hearing intact, clear oral mucosa, dentition normal - Neck Neck: Present: supple, normal ROM - Respiratory Respiratory effort: normal Respiratory: bilateral: CTA Details: On high flow 10 L - Cardiovascular Rhythm: regular Heart Sounds: Present: S1 & S2 - Extremities Extremities: no ischemia, pulses intact, pulses symmetrical, No edema, normal temperature, normal color Peripheral Pulses: within normal limits - Abdominal General gastrointestinal: soft, non-tender, non-distended, normal bowel sounds - Integumentary Integumentary: Present: clear, warm, dry - Psychiatric Psychiatric: appropriate mood/affect, intact judgment & insight, memory intact, cooperative - Neurologic Neurologic: CNII-XII intact, moves all extremities - Allied Health Allied health notes reviewed: nursing HEART Score - HEART Score Troponin: Troponin T < 0.010 ng/mL (0.00-0.029) 04/17/21 07:07 Results - Labs CBC & Chem 7: 04/19/21 06:45 04/19/21 06:45 Labs: Laboratory Last Values WBC 5.3 K/mm3 (4.5-11.0) 04/19/21 06:45 RBC 4.96 M/mm3 (3.65-5.03) 04/19/21 06:45 Hgb 14.7 gm/dl (10.1-14.3) H 04/19/21 06:45 Hct 42.7 % (30.3-42.9) 04/19/21 06:45 MCV 86 fl (79-97) 04/19/21 06:45 MCH 30 pg (28-32) 04/19/21 06:45 MCHC 35 % (30-34) H 04/19/21 06:45 RDW 12.6 % (13.2-15.2) L 04/19/21 06:45 Plt Count 201 K/mm3 (140-440) 04/19/21 06:45 Lymph % (Auto) 25.0 % (13.4-35.0) 04/19/21 06:45 [place] % (Auto) 13.4 % (0.0-7.3) H 04/19/21 06:45 Eos % (Auto) 0.0 % (0.0-4.3) 04/19/21 06:45 Baso % (Auto) 0.4 % (0.0-1.8) 04/19/21 06:45 Lymph # (Auto) 1.3 K/mm3 (1.2-5.4) 04/19/21 06:45 [place] # (Auto) 0.7 K/mm3 (0.0-0.8) 04/19/21 06:45 Eos # (Auto) 0.0 K/mm3 (0.0-0.4) 04/19/21 06:45 Baso # (Auto) 0.0 K/mm3 (0.0-0.1) 04/19/21 06:45 Add Manual Diff Complete 04/18/21 07:05 Total Counted 100 04/18/21 07:05 Seg Neutrophils % 61.2 % (40.0-70.0) 04/19/21 06:45 Seg Neuts % (Manual) 40.0 % (40.0-70.0) 04/18/21 07:05 Band Neutrophils % 3.0 % 04/18/21 07:05 Lymphocytes % (Manual) 44.0 % (13.4-35.0) H 04/18/21 07:05 Monocytes % (Manual) 13.0 % (0.0-7.3) H 04/18/21 07:05 Nucleated RBC % Not Reportable 04/18/21 07:05 Seg Neutrophils # 3.2 K/mm3 (1.8-7.7) 04/19/21 06:45 Seg Neutrophils # Man 0.8 K/mm3 (1.8-7.7) L 04/18/21 07:05 Band Neutrophils # 0.1 K/mm3 04/18/21 07:05 Lymphocytes # (Manual) 0.9 K/mm3 (1.2-5.4) L 04/18/21 07:05 Abs React Lymphs (Man) 0.0 K/mm3 04/18/21 07:05 Monocytes # (Manual) 0.3 K/mm3 (0.0-0.8) 04/18/21 07:05 Eosinophils # (Manual) 0.0 K/mm3 (0.0-0.4) 04/18/21 07:05 Basophils # (Manual) 0.0 K/mm3 (0.0-0.1) 04/18/21 07:05 Metamyelocytes # 0.0 K/mm3 04/18/21 07:05 Myelocytes # 0.0 K/mm3 04/18/21 07:05 Promyelocytes # 0.0 K/mm3 04/18/21 07:05 Blast Cells # 0.0 K/mm3 04/18/21 07:05 WBC Morphology Not Reportable 04/18/21 07:05 Hypersegmented Neuts Not Reportable 04/18/21 07:05 Hyposegmented Neuts Not Reportable 04/18/21 07:05 Hypogranular Neuts Not Reportable 04/18/21 07:05 Smudge Cells Not Reportable 04/18/21 07:05 Toxic Granulation Not Reportable 04/18/21 07:05 Toxic Vacuolation Not Reportable 04/18/21 07:05 Dohle Bodies Not Reportable 04/18/21 07:05 Pelger-Huet Anomaly Not Reportable 04/18/21 07:05 Kenney Rods Not Reportable 04/18/21 07:05 Platelet Estimate Not Reportable 04/18/21 07:05 Clumped Platelets Not Reportable 04/18/21 07:05 Plt Clumps, EDTA Not Reportable 04/18/21 07:05 Large Platelets Not Reportable 04/18/21 07:05 Giant Platelets Not Reportable 04/18/21 07:05 Platelet Satelliting Not Reportable 04/18/21 07:05 Plt Morphology Comment Not Reportable 04/18/21 07:05 RBC Morphology Not Reportable 04/18/21 07:05 Dimorphic RBCs Not Reportable 04/18/21 07:05 Polychromasia Not Reportable 04/18/21 07:05 Hypochromasia Not Reportable 04/18/21 07:05 Poikilocytosis Not Reportable 04/18/21 07:05 Anisocytosis 1+ 04/18/21 07:05 Microcytosis Not Reportable 04/18/21 07:05 Macrocytosis Not Reportable 04/18/21 07:05 Spherocytes Not Reportable 04/18/21 07:05 Pappenheimer Bodies Not Reportable 04/18/21 07:05 Sickle Cells Not Reportable 04/18/21 07:05 Target Cells Not Reportable 04/18/21 07:05 Tear Drop Cells Not Reportable 04/18/21 07:05 Ovalocytes Not Reportable 04/18/21 07:05 Helmet Cells Not Reportable 04/18/21 07:05 Garcia-[place] Bodies Not Reportable 04/18/21 07:05 [place] Rings Not Reportable 04/18/21 07:05 [place] Cells Not Reportable 04/18/21 07:05 Bite Cells Not Reportable 04/18/21 07:05 Crenated Cell Not Reportable 04/18/21 07:05 Elliptocytes Not Reportable 04/18/21 07:05 Acanthocytes (Spur) Not Reportable 04/18/21 07:05 Rouleaux Not Reportable 04/18/21 07:05 Hemoglobin C Crystals Not Reportable 04/18/21 07:05 Schistocytes Not Reportable 04/18/21 07:05 Malaria parasites Not Reportable 04/18/21 07:05 Rodrigo Bodies Not Reportable 04/18/21 07:05 Hem Pathologist Commnt No 04/18/21 07:05 PT 13.2 Sec. (12.2-14.9) 04/17/21 07:07 INR 0.90 (0.87-1.13) 04/17/21 07:07 APTT 31.5 Sec. (24.2-36.6) 04/17/21 07:07 D-Dimer 734.44 ng/mlDDU (0-234) H 04/18/21 07:15 Sodium 138 mmol/L (137-145) 04/19/21 06:45 Potassium 4.3 mmol/L (3.6-5.0) 04/19/21 06:45 Chloride 102.8 mmol/L (98-107) 04/19/21 06:45 Carbon Dioxide 25 mmol/L (22-30) 04/19/21 06:45 Anion Gap 15 mmol/L 04/19/21 06:45 BUN 13 mg/dL (7-17) 04/19/21 06:45 Creatinine 0.5 mg/dL (0.6-1.2) L 04/19/21 06:45 Estimated GFR > 60 ml/min 04/19/21 06:45 BUN/Creatinine Ratio 26 % 04/19/21 06:45 Glucose 164 mg/dL (65-100) H 04/19/21 06:45 POC Glucose 146 mg/dL (70-105) H 04/19/21 11:40 Hemoglobin A1c 6.0 % (4-6) 04/18/21 07:05 Lactic Acid 1.20 mmol/L (0.7-2.0) 04/17/21 07:07 Calcium 8.6 mg/dL (8.4-10.2) 04/19/21 06:45 Phosphorus 3.00 mg/dL (2.5-4.5) 04/19/21 06:45 Magnesium 2.00 mg/dL (1.7-2.3) 04/19/21 06:45 Ferritin 323.6 ng/mL (10.0-200.0) H 04/18/21 07:15 Total Bilirubin 0.20 mg/dL (0.1-1.2) 04/19/21 06:45 AST 32 units/L (5-40) 04/19/21 06:45 ALT 36 units/L (7-56) 04/19/21 06:45 Alkaline Phosphatase 62 units/L (35-129) 04/19/21 06:45 Lactate Dehydrogenase 315 units/L (91-180) H 04/18/21 07:05 Troponin T < 0.010 ng/mL (0.00-0.029) 04/17/21 07:07 C-Reactive Protein 1.40 mg/dL (0.00-1.30) H 04/18/21 07:05 NT-Pro-B Natriuret Pep < 5 pg/mL (0-450) 04/17/21 07:07 Total Protein 7.4 g/dL (6.3-8.2) 04/19/21 06:45 Albumin 3.8 g/dL (3.9-5) L 04/19/21 06:45 Albumin/Globulin Ratio 1.1 % 04/19/21 06:45 Triglycerides 48 mg/dL (2-149) 04/18/21 07:05 Cholesterol 87 mg/dL (50-199) 04/18/21 07:05 LDL Cholesterol Direct 42 mg/dL (50-130) L 04/18/21 07:05 HDL Cholesterol 28 mg/dL (40-59) L 04/18/21 07:05 Cholesterol/HDL Ratio 3.10 % 04/18/21 07:05 Urine Color [place] (Yellow) 04/17/21 06:58 Urine Turbidity Slightly-cloudy (Clear) 04/17/21 06:58 Urine pH 6.0 (5.0-7.0) 04/17/21 06:58 Ur Specific [place] 1.024 (1.003-1.030) 04/17/21 06:58 Urine Protein 100 mg/dl mg/dL (Negative) 04/17/21 06:58 Urine Glucose (UA) Neg mg/dL (Negative) 04/17/21 06:58 Urine Ketones Tr mg/dL (Negative) 04/17/21 06:58 Urine Blood Neg (Negative) 04/17/21 06:58 Urine Nitrite Neg (Negative) 04/17/21 06:58 Urine Bilirubin Neg (Negative) 04/17/21 06:58 Urine Urobilinogen < 2.0 mg/dL (<2.0) 04/17/21 06:58 Ur Leukocyte Esterase Neg (Negative) 04/17/21 06:58 Urine WBC (Auto) 14.0 /HPF (0.0-6.0) H 04/17/21 06:58 Urine RBC (Auto) 26.0 /HPF (0.0-6.0) 04/17/21 06:58 U Epithel Cells (Auto) 24.0 /HPF (0-13.0) H 04/17/21 06:58 Urine Bacteria (Auto) 2+ /HPF (Negative) 04/17/21 06:58 Urine Yeast (Budding) Few /HPF 04/17/21 06:58 Coronavirus (PCR) Positive (Negative) A 04/17/21 Unknown Microbiology: Microbiology 04/17/21 Unknown Urine,Clean Catch Urine Culture - Final NO GROWTH AFTER 48 HOURS 04/17/21 07:07 Peripheral/Venous Blood Culture - Preliminary NO GROWTH AFTER 48 HOURS 04/17/21 07:07 Peripheral/Venous Blood Culture - Preliminary NO GROWTH AFTER 48 HOURS [place]/IV: Voiding Method Bedside Commode Active Medications - Current Medications Current Medications: Generic Name Dose Route Start Last Admin Trade Name Freq PRN Reason Stop Dose Admin Al Hydrox/Mg Hydrox/Simethicone 30 ml 04/18/21 04:45 04/18/21 05:28 Alum-Mag Hydroxide-Simethicone [phone]/5ml Oral Liqd 30 Ml PO 30 ml Q6H PRN Administration Indigestion Azithromycin 500 mg 04/18/21 10:00 04/19/21 10:16 Azithromycin 250 Mg Tab PO 04/20/21 09:59 500 mg DAILY MATTHIAS Administration Protocol Dexamethasone 8 mg 04/17/21 16:00 04/19/21 10:16 Dexamethasone 4 Mg Tab PO 04/26/21 10:01 8 mg DAILY MATTHIAS Administration Dextrose 50 ml 04/17/21 11:11 Dextrose 50% In Water (25gm) 50 Ml Syringe IV Q30MIN PRN Hypoglycemia Protocol Docusate Sodium 100 mg 04/17/21 11:11 Docusate Sodium 100 Mg Cap PO BID PRN Constipation Enoxaparin Sodium 40 mg 04/18/21 10:00 04/19/21 10:16 Enoxaparin 40 Mg/0.4 Ml Inj SUB-Q 40 mg QDAY MATTHIAS Administration Famotidine 20 mg 04/17/21 22:00 04/19/21 10:16 Famotidine 20 Mg Tab PO 20 mg BID MATTHIAS Administration Ceftriaxone Sodium 1 gm in 50 mls @ 100 mls/hr 04/18/21 12:00 04/18/21 12:53 Rocephin/Ns 1 Gm/50 Ml IV 04/20/21 11:59 100 mls/hr Q24H MATTHIAS Administration Protocol REMDESIVIR 100 mg/ Sodium 250 mls @ 500 mls/hr 04/18/21 21:00 04/18/21 21:02 Chloride IV 04/21/21 21:29 500 mls/hr Q24HR@2100 MATTHIAS Administration Insulin Human Regular 0 units 04/17/21 12:00 04/19/21 08:30 Insulin Regular, Human 100 Units/1 Ml SUB-Q Not Given ACHS MATTHIAS Protocol Morphine Sulfate 4 mg 04/17/21 11:11 Morphine 4 Mg/1 Ml Inj IV Q4H PRN Pain , Severe (7-10) Ondansetron HCl 4 mg 04/17/21 11:11 04/18/21 12:56 Ondansetron 4 Mg/2 Ml Inj IV 4 mg Q8H PRN Administration Nausea And Vomiting Senna 8.6 mg 04/17/21 11:11 Sennosides 8.6 Mg Tab PO Q12HR PRN Constipation Sodium Chloride 10 ml 04/17/21 22:00 04/19/21 10:17 Sodium Chloride 0.9% 10 Ml Flush Syringe IV 10 ml BID MATTHIAS Administration Sodium Chloride 10 ml 04/17/21 11:11 Sodium Chloride 0.9% 10 Ml Flush Syringe IV PRN PRN LINE FLUSH Sodium Chloride 50 ml 04/17/21 21:00 04/18/21 21:02 Sodium Chloride 0.9% 50 Ml Ivpb IV 04/21/21 21:01 50 ml Q24HR@2100 MATTHIAS Administration Nutrition/Malnutrition Assess - Dietary Evaluation Nutrition/Malnutrition Findings: Nutrition Notes Start: 04/18/21 13:24 Freq: Status: Active Protocol: Document 04/18/21 13:24 CW (Rec: 04/18/21 13:33 CW [email or web address]) Nutrition Notes Need for Assessment generated from: MST Initial or Follow up Assessment Other Pertinent Diagnosis Covid 19 Current Diet Regular Diet Labs/Tests reviewed Pertinent Medications zofran decadron NS 50 ml Height 5 ft Weight 95.254 kg [place] Body Weight (kg) 45.45 BMI 41.0 Weight Status Obese Subjective/Other Information Screen for MST. Pt reports stable weight and UBW of 210 lbs, indicating no weight change. Pt reports having a good appetite and consimung > 75% of meals provided. Pt report shaving not nutritional questions nor concerns. Percent of energy/protein needs met: 100%/100% GI Symptoms None Food Allergy No Current % PO Good (75-100%) Minimum of two criteria No physical signs of malnutrition Is patient on ventilator? No Is Patient Ambulatory and/or Out of Bed Yes REE-([place] or-ambulatory/OOB) [ 2058.252 [id number]] Kcal/Kg value to use for calculation 16 Approximate Energy Requirements Using 1524 kcal/Kg Calculation Used for Recommendations Kcal/kg Additional Notes protein needs: 36 - 45g (0.8 - 1g/kgIBW) fluid needs: 1 ml/kcal Nutrition Intervention Change Diet Order: Continue regualr diet as ordered Anticipated Discharge Needs: Regular diet Revisit per MD consult or patient Sign Off request: Additional Comments S/O for stable weight adn good PO intake
[2021-04-19] MEDS: cefTRIAXone/NS 1 GM/50 ML 1 GM/50 ML BAG IV SCH (12:49)
[2021-04-19] MEDS: REMDESIVIR 100 MG in SODIUM CHLORIDE 0.9% 250ML 250 ML IV SCH (22:09)
[2021-04-19] MEDS: SODIUM CHLORIDE 0.9% 50 ML IVPB IV SCH (22:40)
[2021-04-20 07:07] LABS: Alanine Aminotransferase 46 units/L (7-56); Albumin 3.4 g/dL (3.9-5); Blood Urea Nitrogen 13 mg/dL (7-17); Calcium 8.3 mg/dL (8.4-10.2); Hemolysis Index 4
[2021-04-20 07:10] LABS: BUN/Creatinine Ratio 33
[2021-04-20] MEDS: INSULIN REGULAR, HUMAN 100 UNITS/1 ML SUB-Q SCH ×4 (07:30→22:38)
[2021-04-20] MEDS: FAMOTIDINE 20 MG TAB PO SCH ×2 (09:31→21:19)
[2021-04-20] MEDS: ENOXAPARIN 40 MG/0.4 ML INJ SUB-Q SCH (09:31)
[2021-04-20] MEDS: DEXAMETHASONE 4 MG TAB PO SCH (09:32)
--- NOTE | 2021-04-20 10:49 | Progress Note ---
Assessment and Plan Cultures: Blood culture no growth so far A/P: 30-year-old female past medical history morbid obesity presented to the hospital complaining of shortness of breath with associated no patient COVID-19 diagnosis. #Severe COVID-19 pneumonia: Patient presented with a week of symptoms, chest x- ray with diffuse bilateral infiltrates. Inflammatory markers elevated #Acute hypoxemic respiratory failure: Likely secondary to COVID-19 infection. Currently on 8LN #Morbid obesity: associated with worse COVID outcomes. Recommendations: -Dexamethasone 6 mg IV/PO daily for 10 days -Remdesivir 200 mg IV q day x 1 followed by 100 mg IV q day x 4 days -Obtain q48-72h inflammatory markers - ferritin, Ddimer, CRP, LDH -Anticoagulation per hospital protocol -Proning as able Thank you for the consult, we will continue to follow. Pascual Mtz MD [facility] ([facility]) O: [phone] F: [phone] Subjective Date of service: 04/20/21 Interval history: Afebrile, normal whtie count. On 8L VT. Objective - Exam Narrative Exam: Physical exam deferred to reduce risk of transmission of COVID-19. Please refer to primary team's note. - Constitutional Vitals: Vital Signs Temp Pulse Resp BP Pulse Ox 97.8 F 54 L 16 95/48 93 04/20/21 04:08 04/20/21 04:08 04/20/21 04:08 04/20/21 04:08 04/20/21 09:33 Temperature -Last 24 Hours Temperature 97.8 F Temperature 98.1 F Temperature 98.0 F Temperature 98.3 F - Labs CBC & Chem 7: 04/19/21 06:45 04/20/21 05:47 Labs: Abnormal lab results 04/19/21 04/19/21 04/19/21 Range/Units 11:40 16:30 20:57 D-Dimer (0-234) ng/mlDDU Creatinine (0.6-1.2) mg/dL Glucose (65-100) mg/dL POC Glucose 146 H 169 H 215 H (70-105) mg/dL Calcium (8.4-10.2) mg/dL Ferritin (10.0-200.0) ng/mL Albumin (3.9-5) g/dL 04/20/21 04/20/21 04/20/21 Range/Units 05:47 05:47 05:47 D-Dimer 511.61 H (0-234) ng/mlDDU Creatinine 0.4 L (0.6-1.2) mg/dL Glucose 172 H (65-100) mg/dL POC Glucose (70-105) mg/dL Calcium 8.3 L (8.4-10.2) mg/dL Ferritin 256.3 H (10.0-200.0) ng/mL Albumin 3.4 L (3.9-5) g/dL 04/20/21 Range/Units 07:44 D-Dimer (0-234) ng/mlDDU Creatinine (0.6-1.2) mg/dL Glucose (65-100) mg/dL POC Glucose 140 H (70-105) mg/dL Calcium (8.4-10.2) mg/dL Ferritin (10.0-200.0) ng/mL Albumin (3.9-5) g/dL
--- NOTE | 2021-04-20 11:36 | Progress Note ---
Assessment and Plan Assessment and plan: Patient is a 30-year-old female with no significant past medical history except morbid obesity who presented with worsening dyspnea at rest after testing positive for COVID-19 on 04/12/2021. #COVID-19 pneumonia #Acute hypoxic respiratory failure-improving #Possible community-acquired pneumonia-resolved -Coronavirus PCR positive -Currently on high flow nasal cannula 8 L -Chest x-ray revealing pulmonary congestion (interstitium and vasculature) in addition to atelectasis. CTA chest negative for PE but revealing peripheral opacities. -Completed IV antibiotic course for CAP. Will receive the last dose of Rocephin today. -Pending blood cultures drawn from presentation; NGTD x4 day -Continue p.o. dexamethasone 8 mg every 24 hours for 10-day course (/). -Infectious disease consulted; appreciate recs. Continue remdesivir for 5-day course (ends 04/21/2021). -Following ferritin, LDH, CRP, and D-dimer levels -Continue to monitor #Asymptomatic bacteriuria-resolved -UA revealing negative nitrites and leukocyte esterase. WBC 14 and 2+ bacteria. -Status post Rocephin 1 g in the ED. Will be treated with Rocephin therapy for presumed community-acquired pneumonia. -Continue to monitor #Hyperglycemia -Likely secondary to steroid administration. -Pending hemoglobin A1c -Continue to monitor #Morbid obesity #Weight loss counseling #Dietary counseling -BMI 41 -Counseled patient about weight loss, dietary changes (lean meats, fresh fruits and vegetables, increased water intake, etc.), and incorporating exercise. Patient expressed understanding. -Time: +15 minutes #Advanced care planning -Disease education conducted, care plan discussed, diagnoses discussed, prognosis discussed, and patient acknowledges understanding with care plan -Time: +20 minutes Disposition Plan: Continue medical management Total Time Spent with Patient (Minutes): 40-minute History Interval history: No acute events overnight. Hospitalist Physical - Constitutional Vitals: Temp Pulse Resp BP Pulse Ox 97.8 F 54 L 16 95/48 93 04/20/21 04:08 04/20/21 04:08 04/20/21 04:08 04/20/21 04:08 04/20/21 09:33 General appearance: Present: no acute distress, well-nourished, obese - EENT Eyes: Present: PERRL, EOM intact ENT: hearing intact, clear oral mucosa, dentition normal - Neck Neck: Present: supple, normal ROM - Respiratory Respiratory effort: normal Respiratory: bilateral: diminished Details: Currently on high flow 8 L - Cardiovascular Rhythm: regular Heart Sounds: Present: S1 & S2 - Extremities Extremities: no ischemia, pulses intact, pulses symmetrical, No edema, normal temperature, normal color Peripheral Pulses: within normal limits - Abdominal General gastrointestinal: soft, non-tender, non-distended, normal bowel sounds - Integumentary Integumentary: Present: clear, warm, dry - Psychiatric Psychiatric: appropriate mood/affect, intact judgment & insight, memory intact, cooperative - Neurologic Neurologic: CNII-XII intact, moves all extremities - Allied Health Allied health notes reviewed: nursing HEART Score - HEART Score Troponin: Troponin T < 0.010 ng/mL (0.00-0.029) 04/17/21 07:07 Results - Labs CBC & Chem 7: 04/19/21 06:45 04/20/21 05:47 Labs: Laboratory Last Values WBC 5.3 K/mm3 (4.5-11.0) 04/19/21 06:45 RBC 4.96 M/mm3 (3.65-5.03) 04/19/21 06:45 Hgb 14.7 gm/dl (10.1-14.3) H 04/19/21 06:45 Hct 42.7 % (30.3-42.9) 04/19/21 06:45 MCV 86 fl (79-97) 04/19/21 06:45 MCH 30 pg (28-32) 04/19/21 06:45 MCHC 35 % (30-34) H 04/19/21 06:45 RDW 12.6 % (13.2-15.2) L 04/19/21 06:45 Plt Count 201 K/mm3 (140-440) 04/19/21 06:45 Lymph % (Auto) 25.0 % (13.4-35.0) 04/19/21 06:45 [place] % (Auto) 13.4 % (0.0-7.3) H 04/19/21 06:45 Eos % (Auto) 0.0 % (0.0-4.3) 04/19/21 06:45 Baso % (Auto) 0.4 % (0.0-1.8) 04/19/21 06:45 Lymph # (Auto) 1.3 K/mm3 (1.2-5.4) 04/19/21 06:45 [place] # (Auto) 0.7 K/mm3 (0.0-0.8) 04/19/21 06:45 Eos # (Auto) 0.0 K/mm3 (0.0-0.4) 04/19/21 06:45 Baso # (Auto) 0.0 K/mm3 (0.0-0.1) 04/19/21 06:45 Add Manual Diff Complete 04/18/21 07:05 Total Counted 100 04/18/21 07:05 Seg Neutrophils % 61.2 % (40.0-70.0) 04/19/21 06:45 Seg Neuts % (Manual) 40.0 % (40.0-70.0) 04/18/21 07:05 Band Neutrophils % 3.0 % 04/18/21 07:05 Lymphocytes % (Manual) 44.0 % (13.4-35.0) H 04/18/21 07:05 Monocytes % (Manual) 13.0 % (0.0-7.3) H 04/18/21 07:05 Nucleated RBC % Not Reportable 04/18/21 07:05 Seg Neutrophils # 3.2 K/mm3 (1.8-7.7) 04/19/21 06:45 Seg Neutrophils # Man 0.8 K/mm3 (1.8-7.7) L 04/18/21 07:05 Band Neutrophils # 0.1 K/mm3 04/18/21 07:05 Lymphocytes # (Manual) 0.9 K/mm3 (1.2-5.4) L 04/18/21 07:05 Abs React Lymphs (Man) 0.0 K/mm3 04/18/21 07:05 Monocytes # (Manual) 0.3 K/mm3 (0.0-0.8) 04/18/21 07:05 Eosinophils # (Manual) 0.0 K/mm3 (0.0-0.4) 04/18/21 07:05 Basophils # (Manual) 0.0 K/mm3 (0.0-0.1) 04/18/21 07:05 Metamyelocytes # 0.0 K/mm3 04/18/21 07:05 Myelocytes # 0.0 K/mm3 04/18/21 07:05 Promyelocytes # 0.0 K/mm3 04/18/21 07:05 Blast Cells # 0.0 K/mm3 04/18/21 07:05 WBC Morphology Not Reportable 04/18/21 07:05 Hypersegmented Neuts Not Reportable 04/18/21 07:05 Hyposegmented Neuts Not Reportable 04/18/21 07:05 Hypogranular Neuts Not Reportable 04/18/21 07:05 Smudge Cells Not Reportable 04/18/21 07:05 Toxic Granulation Not Reportable 04/18/21 07:05 Toxic Vacuolation Not Reportable 04/18/21 07:05 Dohle Bodies Not Reportable 04/18/21 07:05 Pelger-Huet Anomaly Not Reportable 04/18/21 07:05 Kenney Rods Not Reportable 04/18/21 07:05 Platelet Estimate Not Reportable 04/18/21 07:05 Clumped Platelets Not Reportable 04/18/21 07:05 Plt Clumps, EDTA Not Reportable 04/18/21 07:05 Large Platelets Not Reportable 04/18/21 07:05 Giant Platelets Not Reportable 04/18/21 07:05 Platelet Satelliting Not Reportable 04/18/21 07:05 Plt Morphology Comment Not Reportable 04/18/21 07:05 RBC Morphology Not Reportable 04/18/21 07:05 Dimorphic RBCs Not Reportable 04/18/21 07:05 Polychromasia Not Reportable 04/18/21 07:05 Hypochromasia Not Reportable 04/18/21 07:05 Poikilocytosis Not Reportable 04/18/21 07:05 Anisocytosis 1+ 04/18/21 07:05 Microcytosis Not Reportable 04/18/21 07:05 Macrocytosis Not Reportable 04/18/21 07:05 Spherocytes Not Reportable 04/18/21 07:05 Pappenheimer Bodies Not Reportable 04/18/21 07:05 Sickle Cells Not Reportable 04/18/21 07:05 Target Cells Not Reportable 04/18/21 07:05 Tear Drop Cells Not Reportable 04/18/21 07:05 Ovalocytes Not Reportable 04/18/21 07:05 Helmet Cells Not Reportable 04/18/21 07:05 [place] Bodies Not Reportable 04/18/21 07:05 [place] Rings Not Reportable 04/18/21 07:05 [place] Cells Not Reportable 04/18/21 07:05 Bite Cells Not Reportable 04/18/21 07:05 Crenated Cell Not Reportable 04/18/21 07:05 Elliptocytes Not Reportable 04/18/21 07:05 Acanthocytes (Spur) Not Reportable 04/18/21 07:05 Rouleaux Not Reportable 04/18/21 07:05 Hemoglobin C Crystals Not Reportable 04/18/21 07:05 Schistocytes Not Reportable 04/18/21 07:05 Malaria parasites Not Reportable 04/18/21 07:05 Rodrigo Bodies Not Reportable 04/18/21 07:05 Hem Pathologist Commnt No 04/18/21 07:05 PT 13.2 Sec. (12.2-14.9) 04/17/21 07:07 INR 0.90 (0.87-1.13) 04/17/21 07:07 APTT 31.5 Sec. (24.2-36.6) 04/17/21 07:07 D-Dimer 511.61 ng/mlDDU (0-234) H 04/20/21 05:47 Sodium 138 mmol/L (137-145) 04/20/21 05:47 Potassium 4.2 mmol/L (3.6-5.0) 04/20/21 05:47 Chloride 103.8 mmol/L (98-107) 04/20/21 05:47 Carbon Dioxide 24 mmol/L (22-30) 04/20/21 05:47 Anion Gap 14 mmol/L 04/20/21 05:47 BUN 13 mg/dL (7-17) 04/20/21 05:47 Creatinine 0.4 mg/dL (0.6-1.2) L 04/20/21 05:47 Estimated GFR > 60 ml/min 04/20/21 05:47 BUN/Creatinine Ratio 33 % 04/20/21 05:47 Glucose 172 mg/dL (65-100) H 04/20/21 05:47 POC Glucose 140 mg/dL (70-105) H 04/20/21 07:44 Hemoglobin A1c 6.0 % (4-6) 04/18/21 07:05 Lactic Acid 1.20 mmol/L (0.7-2.0) 04/17/21 07:07 Calcium 8.3 mg/dL (8.4-10.2) L 04/20/21 05:47 Phosphorus 3.00 mg/dL (2.5-4.5) 04/19/21 06:45 Magnesium 2.00 mg/dL (1.7-2.3) 04/19/21 06:45 Ferritin 256.3 ng/mL (10.0-200.0) H 04/20/21 05:47 Total Bilirubin 0.20 mg/dL (0.1-1.2) 04/20/21 05:47 AST 24 units/L (5-40) 04/20/21 05:47 ALT 46 units/L (7-56) 04/20/21 05:47 Alkaline Phosphatase 57 units/L (35-129) 04/20/21 05:47 Lactate Dehydrogenase 315 units/L (91-180) H 04/18/21 07:05 Troponin T < 0.010 ng/mL (0.00-0.029) 04/17/21 07:07 C-Reactive Protein 0.30 mg/dL (0.00-1.30) 04/20/21 05:47 NT-Pro-B Natriuret Pep < 5 pg/mL (0-450) 04/17/21 07:07 Total Protein 6.6 g/dL (6.3-8.2) 04/20/21 05:47 Albumin 3.4 g/dL (3.9-5) L 04/20/21 05:47 Albumin/Globulin Ratio 1.1 % 04/20/21 05:47 Triglycerides 48 mg/dL (2-149) 04/18/21 07:05 Cholesterol 87 mg/dL (50-199) 04/18/21 07:05 LDL Cholesterol Direct 42 mg/dL (50-130) L 04/18/21 07:05 HDL Cholesterol 28 mg/dL (40-59) L 04/18/21 07:05 Cholesterol/HDL Ratio 3.10 % 04/18/21 07:05 Urine Color [place] (Yellow) 04/17/21 06:58 Urine Turbidity Slightly-cloudy (Clear) 04/17/21 06:58 Urine pH 6.0 (5.0-7.0) 04/17/21 06:58 Ur Specific [place] 1.024 (1.003-1.030) 04/17/21 06:58 Urine Protein 100 mg/dl mg/dL (Negative) 04/17/21 06:58 Urine Glucose (UA) Neg mg/dL (Negative) 04/17/21 06:58 Urine Ketones Tr mg/dL (Negative) 04/17/21 06:58 Urine Blood Neg (Negative) 04/17/21 06:58 Urine Nitrite Neg (Negative) 04/17/21 06:58 Urine Bilirubin Neg (Negative) 04/17/21 06:58 Urine Urobilinogen < 2.0 mg/dL (<2.0) 04/17/21 06:58 Ur Leukocyte Esterase Neg (Negative) 04/17/21 06:58 Urine WBC (Auto) 14.0 /HPF (0.0-6.0) H 04/17/21 06:58 Urine RBC (Auto) 26.0 /HPF (0.0-6.0) 04/17/21 06:58 U Epithel Cells (Auto) 24.0 /HPF (0-13.0) H 04/17/21 06:58 Urine Bacteria (Auto) 2+ /HPF (Negative) 04/17/21 06:58 Urine Yeast (Budding) Few /HPF 04/17/21 06:58 Coronavirus (PCR) Positive (Negative) A 04/17/21 Unknown Microbiology: Microbiology 04/17/21 07:07 Peripheral/Venous Blood Culture - Preliminary NO GROWTH AFTER 72 HOURS 04/17/21 07:07 Peripheral/Venous Blood Culture - Preliminary NO GROWTH AFTER 72 HOURS 04/17/21 Unknown Urine,Clean Catch Urine Culture - Final NO GROWTH AFTER 48 HOURS [place]/IV: Voiding Method Bedside Commode Active Medications - Current Medications Current Medications: Generic Name Dose Route Start Last Admin Trade Name Freq PRN Reason Stop Dose Admin Al Hydrox/Mg Hydrox/Simethicone 30 ml 04/18/21 04:45 04/18/21 05:28 Alum-Mag Hydroxide-Simethicone 169-965-98mb/5ml Oral Liqd 30 Ml PO 30 ml Q6H PRN Administration Indigestion Dexamethasone 8 mg 04/17/21 16:00 04/20/21 09:32 Dexamethasone 4 Mg Tab PO 04/26/21 10:01 8 mg DAILY MATTHIAS Administration Dextrose 50 ml 04/17/21 11:11 Dextrose 50% In Water (25gm) 50 Ml Syringe IV Q30MIN PRN Hypoglycemia Protocol Docusate Sodium 100 mg 04/17/21 11:11 Docusate Sodium 100 Mg Cap PO BID PRN Constipation Enoxaparin Sodium 40 mg 04/18/21 10:00 04/20/21 09:31 Enoxaparin 40 Mg/0.4 Ml Inj SUB-Q 40 mg QDAY MATTHIAS Administration Famotidine 20 mg 04/17/21 22:00 04/20/21 09:31 Famotidine 20 Mg Tab PO 20 mg BID MATTHIAS Administration REMDESIVIR 100 mg/ Sodium 250 mls @ 500 mls/hr 04/18/21 21:00 04/19/21 22:09 Chloride IV 04/21/21 21:29 500 mls/hr Q24HR@2100 MATTHIAS Administration Insulin Human Regular 0 units 04/17/21 12:00 04/20/21 07:30 Insulin Regular, Human 100 Units/1 Ml SUB-Q Not Given ACHS [facility] Protocol Morphine Sulfate 4 mg 04/17/21 11:11 Morphine 4 Mg/1 Ml Inj IV Q4H PRN Pain , Severe (7-10) Ondansetron HCl 4 mg 04/17/21 11:11 04/18/21 12:56 Ondansetron 4 Mg/2 Ml Inj IV 4 mg Q8H PRN Administration Nausea And Vomiting Senna 8.6 mg 04/17/21 11:11 Sennosides 8.6 Mg Tab PO Q12HR PRN Constipation Sodium Chloride 10 ml 04/17/21 22:00 04/20/21 09:32 Sodium Chloride 0.9% 10 Ml Flush Syringe IV 10 ml BID MATTHIAS Administration Sodium Chloride 10 ml 04/17/21 11:11 Sodium Chloride 0.9% 10 Ml Flush Syringe IV PRN PRN LINE FLUSH Sodium Chloride 50 ml 04/17/21 21:00 04/19/21 22:40 Sodium Chloride 0.9% 50 Ml Ivpb IV 04/21/21 21:01 50 ml Q24HR@2100 MATTHIAS Administration Nutrition/Malnutrition Assess - Dietary Evaluation Nutrition/Malnutrition Findings: Nutrition Notes Start: 04/18/21 13:24 Freq: Status: Active Protocol: Document 04/18/21 13:24 CW (Rec: 04/18/21 13:33 CW [email or web address]) Nutrition Notes Need for Assessment generated from: MST Initial or Follow up Assessment Other Pertinent Diagnosis Covid 19 Current Diet Regular Diet Labs/Tests reviewed Pertinent Medications zofran decadron NS 50 ml Height 5 ft Weight 95.254 kg [place] Body Weight (kg) 45.45 BMI 41.0 Weight Status Obese Subjective/Other Information Screen for MST. Pt reports stable weight and UBW of 210 lbs, indicating no weight change. Pt reports having a good appetite and consimung > 75% of meals provided. Pt report shaving not nutritional questions nor concerns. Percent of energy/protein needs met: 100%/100% GI Symptoms None Food Allergy No Current % PO Good (75-100%) Minimum of two criteria No physical signs of malnutrition Is patient on ventilator? No Is Patient Ambulatory and/or Out of Bed Yes REE-([facility]-ambulatory/OOB) [ 2058.252 [id number]] Kcal/Kg value to use for calculation 16 Approximate Energy Requirements Using 1524 kcal/Kg Calculation Used for Recommendations Kcal/kg Additional Notes protein needs: 36 - 45g (0.8 - 1g/kgIBW) fluid needs: 1 ml/kcal Nutrition Intervention Change Diet Order: Continue regualr diet as ordered Anticipated Discharge Needs: Regular diet Revisit per MD consult or patient Sign Off request: Additional Comments S/O for stable weight adn good PO intake - Attestation Statement I have reviewed and agreed w/ Malnutrition eval & tx plan: Yes
[2021-04-20] MEDS: REMDESIVIR 100 MG in SODIUM CHLORIDE 0.9% 250ML 250 ML IV SCH (21:19)
[2021-04-20] MEDS: SODIUM CHLORIDE 0.9% 50 ML IVPB IV SCH (21:19)
[2021-04-21 07:49] LABS: Blood Urea Nitrogen 12 mg/dL (7-17); Calcium 8.3 mg/dL (8.4-10.2); Hemolysis Index 108
[2021-04-21 07:50] LABS: BUN/Creatinine Ratio 24
[2021-04-21] MEDS: INSULIN REGULAR, HUMAN 100 UNITS/1 ML SUB-Q SCH ×4 (09:14→23:48)
[2021-04-21] MEDS: FAMOTIDINE 20 MG TAB PO SCH ×2 (10:30→21:32)
[2021-04-21] MEDS: DEXAMETHASONE 4 MG TAB PO SCH (10:30)
[2021-04-21] MEDS: ENOXAPARIN 40 MG/0.4 ML INJ SUB-Q SCH (10:30)
--- NOTE | 2021-04-21 11:52 | Progress Note ---
Assessment and Plan Cultures: Blood culture no growth so far A/P: 30-year-old female past medical history morbid obesity presented to the hospital complaining of shortness of breath with associated no patient COVID-19 diagnosis. #Severe COVID-19 pneumonia: Patient presented with a week of symptoms, chest x- ray with diffuse bilateral infiltrates. Inflammatory markers elevated #Acute hypoxemic respiratory failure: Likely secondary to COVID-19 infection. Currently on 8LNC #Morbid obesity: associated with worse COVID outcomes. Recommendations: -Dexamethasone 6 mg IV/PO daily for 10 days -Remdesivir 200 mg IV q day x 1 followed by 100 mg IV q day x 4 days -Obtain q48-72h inflammatory markers - ferritin, Ddimer, CRP, LDH -Anticoagulation per hospital protocol -Proning as able Thank you for the consult, we will continue to follow. Pascual Mtz MD [facility] ([facility]) O: [phone] F: [phone] Subjective Date of service: 04/21/21 Interval history: Afebrile, normal white count. 8L [place] Objective - Exam Narrative Exam: Physical exam deferred to reduce risk of transmission of COVID-19. Please refer to primary team's note. - Constitutional Vitals: Vital Signs Temp Pulse Resp BP Pulse Ox 97.6 F 60 20 120/53 97 04/21/21 05:51 04/21/21 05:51 04/21/21 05:51 04/21/21 05:51 04/21/21 08:33 Temperature -Last 24 Hours Temperature 97.6 F Temperature 97.6 F Temperature 98.0 F - Labs CBC & Chem 7: 04/19/21 06:45 04/21/21 04:00 Labs: Abnormal lab results 04/20/21 04/20/21 04/20/21 Range/Units 11:59 16:08 22:28 Creatinine (0.6-1.2) mg/dL Glucose (65-100) mg/dL POC Glucose 146 H 195 H 170 H (70-105) mg/dL Calcium (8.4-10.2) mg/dL 04/21/21 04/21/21 04/21/21 Range/Units 04:00 07:50 11:06 Creatinine 0.5 L (0.6-1.2) mg/dL Glucose 141 H (65-100) mg/dL POC Glucose 121 H 186 H (70-105) mg/dL Calcium 8.3 L (8.4-10.2) mg/dL
--- NOTE | 2021-04-21 16:02 | Progress Note ---
Assessment and Plan Assessment and plan: 30-year-old female with no significant past medical history presented with worsening dyspnea at rest after his positive for COVID-19 on 04/12. #COVID-19 pneumonia #Acute hypoxic respiratory failure #Community-acquired pneumonia -Currently on high flow nasal cannula 8 L, maintaining O2 saturations greater than 95%; decreased to 5 L -will continue to wean O2 as tolerated -Status post ABX for CAP coverage -continue Decadron 8 mg x 10 days (last day 04/26) -last day of remdesivir #Asymptomatic bacteriuria -Resolved -Status post Rocephin #Hyperglycemia -A1c ordered, not collected -most likely secondary to steroid administration -will continue to monitor #Morbid obesity #Weight loss counseling #Dietary counseling -BMI 41 -Discussed small dietary changes that would aid in weight loss and increased physical activity. Patient expressed understanding -Time +15 minutes Disposition Plan: Continue medical management; call in 24 to 48 hours Total Time Spent with Patient (Minutes): 20 minutes History Interval history: No acute events overnight. Patient reports feeling extremely better able to ambulate without weakness, shortness of breath. Currently on 8 L nasal cannula. Hospitalist Physical - Physical exam Narrative exam: GENERAL: Well-developed well-nourished. Sitting on the side of the bed in no acute distress. HEENT: Nasal cannula at 8 L/min CHEST/LUNGS: Coarse breath sounds bilaterally. HEART/CARDIOVASCULAR: RRR. No murmur, rubs or gallops appreciated. ABDOMEN: +BS. NT/ND. SKIN: No rashes noted NEURO: No focal motor deficit. Follows all commands and is ambulatory. EXTREMITIES: No cyanosis, clubbing or edema. PSYCH: Cooperative. - Constitutional Vitals: Temp Pulse Resp BP Pulse Ox 98.3 F 75 22 111/76 98 04/21/21 11:08 04/21/21 11:08 04/21/21 11:08 04/21/21 11:08 04/21/21 14:24 General appearance: Present: no acute distress, well-nourished, obese HEART Score - HEART Score Troponin: Troponin T < 0.010 ng/mL (0.00-0.029) 04/17/21 07:07 Results - Labs CBC & Chem 7: 04/19/21 06:45 04/21/21 04:00 Labs: Laboratory Last Values WBC 5.3 K/mm3 (4.5-11.0) 04/19/21 06:45 RBC 4.96 M/mm3 (3.65-5.03) 04/19/21 06:45 Hgb 14.7 gm/dl (10.1-14.3) H 04/19/21 06:45 Hct 42.7 % (30.3-42.9) 04/19/21 06:45 MCV 86 fl (79-97) 04/19/21 06:45 MCH 30 pg (28-32) 04/19/21 06:45 MCHC 35 % (30-34) H 04/19/21 06:45 RDW 12.6 % (13.2-15.2) L 04/19/21 06:45 Plt Count 201 K/mm3 (140-440) 04/19/21 06:45 Lymph % (Auto) 25.0 % (13.4-35.0) 04/19/21 06:45 [place] % (Auto) 13.4 % (0.0-7.3) H 04/19/21 06:45 Eos % (Auto) 0.0 % (0.0-4.3) 04/19/21 06:45 Baso % (Auto) 0.4 % (0.0-1.8) 04/19/21 06:45 Lymph # (Auto) 1.3 K/mm3 (1.2-5.4) 04/19/21 06:45 [place] # (Auto) 0.7 K/mm3 (0.0-0.8) 04/19/21 06:45 Eos # (Auto) 0.0 K/mm3 (0.0-0.4) 04/19/21 06:45 Baso # (Auto) 0.0 K/mm3 (0.0-0.1) 04/19/21 06:45 Add Manual Diff Complete 04/18/21 07:05 Total Counted 100 04/18/21 07:05 Seg Neutrophils % 61.2 % (40.0-70.0) 04/19/21 06:45 Seg Neuts % (Manual) 40.0 % (40.0-70.0) 04/18/21 07:05 Band Neutrophils % 3.0 % 04/18/21 07:05 Lymphocytes % (Manual) 44.0 % (13.4-35.0) H 04/18/21 07:05 Monocytes % (Manual) 13.0 % (0.0-7.3) H 04/18/21 07:05 Nucleated RBC % Not Reportable 04/18/21 07:05 Seg Neutrophils # 3.2 K/mm3 (1.8-7.7) 04/19/21 06:45 Seg Neutrophils # Man 0.8 K/mm3 (1.8-7.7) L 04/18/21 07:05 Band Neutrophils # 0.1 K/mm3 04/18/21 07:05 Lymphocytes # (Manual) 0.9 K/mm3 (1.2-5.4) L 04/18/21 07:05 Abs React Lymphs (Man) 0.0 K/mm3 04/18/21 07:05 Monocytes # (Manual) 0.3 K/mm3 (0.0-0.8) 04/18/21 07:05 Eosinophils # (Manual) 0.0 K/mm3 (0.0-0.4) 04/18/21 07:05 Basophils # (Manual) 0.0 K/mm3 (0.0-0.1) 04/18/21 07:05 Metamyelocytes # 0.0 K/mm3 04/18/21 07:05 Myelocytes # 0.0 K/mm3 04/18/21 07:05 Promyelocytes # 0.0 K/mm3 04/18/21 07:05 Blast Cells # 0.0 K/mm3 04/18/21 07:05 WBC Morphology Not Reportable 04/18/21 07:05 Hypersegmented Neuts Not Reportable 04/18/21 07:05 Hyposegmented Neuts Not Reportable 04/18/21 07:05 Hypogranular Neuts Not Reportable 04/18/21 07:05 Smudge Cells Not Reportable 04/18/21 07:05 Toxic Granulation Not Reportable 04/18/21 07:05 Toxic Vacuolation Not Reportable 04/18/21 07:05 Dohle Bodies Not Reportable 04/18/21 07:05 Pelger-Huet Anomaly Not Reportable 04/18/21 07:05 Kenney Rods Not Reportable 04/18/21 07:05 Platelet Estimate Not Reportable 04/18/21 07:05 Clumped Platelets Not Reportable 04/18/21 07:05 Plt Clumps, EDTA Not Reportable 04/18/21 07:05 Large Platelets Not Reportable 04/18/21 07:05 Giant Platelets Not Reportable 04/18/21 07:05 Platelet Satelliting Not Reportable 04/18/21 07:05 Plt Morphology Comment Not Reportable 04/18/21 07:05 RBC Morphology Not Reportable 04/18/21 07:05 Dimorphic RBCs Not Reportable 04/18/21 07:05 Polychromasia Not Reportable 04/18/21 07:05 Hypochromasia Not Reportable 04/18/21 07:05 Poikilocytosis Not Reportable 04/18/21 07:05 Anisocytosis 1+ 04/18/21 07:05 Microcytosis Not Reportable 04/18/21 07:05 Macrocytosis Not Reportable 04/18/21 07:05 Spherocytes Not Reportable 04/18/21 07:05 Pappenheimer Bodies Not Reportable 04/18/21 07:05 Sickle Cells Not Reportable 04/18/21 07:05 Target Cells Not Reportable 04/18/21 07:05 Tear Drop Cells Not Reportable 04/18/21 07:05 Ovalocytes Not Reportable 04/18/21 07:05 Helmet Cells Not Reportable 04/18/21 07:05 [place] Bodies Not Reportable 04/18/21 07:05 [place] Rings Not Reportable 04/18/21 07:05 Yolanda Cells Not Reportable 04/18/21 07:05 Bite Cells Not Reportable 04/18/21 07:05 Crenated Cell Not Reportable 04/18/21 07:05 Elliptocytes Not Reportable 04/18/21 07:05 Acanthocytes (Spur) Not Reportable 04/18/21 07:05 Rouleaux Not Reportable 04/18/21 07:05 Hemoglobin C Crystals Not Reportable 04/18/21 07:05 Schistocytes Not Reportable 04/18/21 07:05 Malaria parasites Not Reportable 04/18/21 07:05 Rodrigo Bodies Not Reportable 04/18/21 07:05 Hem Pathologist Commnt No 04/18/21 07:05 PT 13.2 Sec. (12.2-14.9) 04/17/21 07:07 INR 0.90 (0.87-1.13) 04/17/21 07:07 APTT 31.5 Sec. (24.2-36.6) 04/17/21 07:07 D-Dimer 511.61 ng/mlDDU (0-234) H 04/20/21 05:47 Sodium 137 mmol/L (137-145) 04/21/21 04:00 Potassium 4.5 mmol/L (3.6-5.0) 04/21/21 04:00 Chloride 101.9 mmol/L (98-107) 04/21/21 04:00 Carbon Dioxide 24 mmol/L (22-30) 04/21/21 04:00 Anion Gap 16 mmol/L 04/21/21 04:00 BUN 12 mg/dL (7-17) 04/21/21 04:00 Creatinine 0.5 mg/dL (0.6-1.2) L 04/21/21 04:00 Estimated GFR > 60 ml/min 04/21/21 04:00 BUN/Creatinine Ratio 24 % 04/21/21 04:00 Glucose 141 mg/dL (65-100) H 04/21/21 04:00 POC Glucose 186 mg/dL (70-105) H 04/21/21 11:06 Hemoglobin A1c 6.0 % (4-6) 04/18/21 07:05 Lactic Acid 1.20 mmol/L (0.7-2.0) 04/17/21 07:07 Calcium 8.3 mg/dL (8.4-10.2) L 04/21/21 04:00 Phosphorus 3.00 mg/dL (2.5-4.5) 04/19/21 06:45 Magnesium 2.00 mg/dL (1.7-2.3) 04/19/21 06:45 Ferritin 256.3 ng/mL (10.0-200.0) H 04/20/21 05:47 Total Bilirubin 0.20 mg/dL (0.1-1.2) 04/20/21 05:47 AST 24 units/L (5-40) 04/20/21 05:47 ALT 46 units/L (7-56) 04/20/21 05:47 Alkaline Phosphatase 57 units/L (35-129) 04/20/21 05:47 Lactate Dehydrogenase 315 units/L (91-180) H 04/18/21 07:05 Troponin T < 0.010 ng/mL (0.00-0.029) 04/17/21 07:07 C-Reactive Protein 0.30 mg/dL (0.00-1.30) 04/20/21 05:47 NT-Pro-B Natriuret Pep < 5 pg/mL (0-450) 04/17/21 07:07 Total Protein 6.6 g/dL (6.3-8.2) 04/20/21 05:47 Albumin 3.4 g/dL (3.9-5) L 04/20/21 05:47 Albumin/Globulin Ratio 1.1 % 04/20/21 05:47 Triglycerides 48 mg/dL (2-149) 04/18/21 07:05 Cholesterol 87 mg/dL (50-199) 04/18/21 07:05 LDL Cholesterol Direct 42 mg/dL (50-130) L 04/18/21 07:05 HDL Cholesterol 28 mg/dL (40-59) L 04/18/21 07:05 Cholesterol/HDL Ratio 3.10 % 04/18/21 07:05 Procalcitonin < 0.05 ng/mL (<0.15) 04/21/21 07:54 Urine Color [place] (Yellow) 04/17/21 06:58 Urine Turbidity Slightly-cloudy (Clear) 04/17/21 06:58 Urine pH 6.0 (5.0-7.0) 04/17/21 06:58 Ur Specific [place] 1.024 (1.003-1.030) 04/17/21 06:58 Urine Protein 100 mg/dl mg/dL (Negative) 04/17/21 06:58 Urine Glucose (UA) Neg mg/dL (Negative) 04/17/21 06:58 Urine Ketones Tr mg/dL (Negative) 04/17/21 06:58 Urine Blood Neg (Negative) 04/17/21 06:58 Urine Nitrite Neg (Negative) 04/17/21 06:58 Urine Bilirubin Neg (Negative) 04/17/21 06:58 Urine Urobilinogen < 2.0 mg/dL (<2.0) 04/17/21 06:58 Ur Leukocyte Esterase Neg (Negative) 04/17/21 06:58 Urine WBC (Auto) 14.0 /HPF (0.0-6.0) H 04/17/21 06:58 Urine RBC (Auto) 26.0 /HPF (0.0-6.0) 04/17/21 06:58 U Epithel Cells (Auto) 24.0 /HPF (0-13.0) H 04/17/21 06:58 Urine Bacteria (Auto) 2+ /HPF (Negative) 04/17/21 06:58 Urine Yeast (Budding) Few /HPF 04/17/21 06:58 Coronavirus (PCR) Positive (Negative) A 04/17/21 Unknown Microbiology: Microbiology 04/17/21 07:07 Peripheral/Venous Blood Culture - Preliminary NO GROWTH AFTER 4 DAYS 04/17/21 07:07 Peripheral/Venous Blood Culture - Preliminary NO GROWTH AFTER 4 DAYS [place]/IV: Voiding Method Toilet Active Medications - Current Medications Current Medications: Generic Name Dose Route Start Last Admin Trade Name Freq PRN Reason Stop Dose Admin Al Hydrox/Mg Hydrox/Simethicone 30 ml 04/18/21 04:45 04/18/21 05:28 Alum-Mag Hydroxide-Simethicone 522-955-31mc/5ml Oral Liqd 30 Ml PO 30 ml Q6H PRN Administration Indigestion Dexamethasone 8 mg 04/17/21 16:00 04/21/21 10:30 Dexamethasone 4 Mg Tab PO 04/26/21 10:01 8 mg DAILY MATTHIAS Administration Dextrose 50 ml 04/17/21 11:11 Dextrose 50% In Water (25gm) 50 Ml Syringe IV Q30MIN PRN Hypoglycemia Protocol Docusate Sodium 100 mg 04/17/21 11:11 Docusate Sodium 100 Mg Cap PO BID PRN Constipation Enoxaparin Sodium 40 mg 04/18/21 10:00 04/21/21 10:30 Enoxaparin 40 Mg/0.4 Ml Inj SUB-Q 40 mg QDAY MATTHIAS Administration Famotidine 20 mg 04/17/21 22:00 04/21/21 10:30 Famotidine 20 Mg Tab PO 20 mg BID MATTHIAS Administration REMDESIVIR 100 mg/ Sodium 250 mls @ 500 mls/hr 04/18/21 21:00 04/20/21 21:19 Chloride IV 04/21/21 21:29 500 mls/hr Q24HR@2100 MATTHIAS Administration Insulin Human Regular 0 units 04/17/21 12:00 04/21/21 13:14 Insulin Regular, Human 100 Units/1 Ml SUB-Q 1 units ACHS [facility] Administration Protocol Morphine Sulfate 4 mg 04/17/21 11:11 Morphine 4 Mg/1 Ml Inj IV Q4H PRN Pain , Severe (7-10) Ondansetron HCl 4 mg 04/17/21 11:11 04/18/21 12:56 Ondansetron 4 Mg/2 Ml Inj IV 4 mg Q8H PRN Administration Nausea And Vomiting Senna 8.6 mg 04/17/21 11:11 Sennosides 8.6 Mg Tab PO Q12HR PRN Constipation Sodium Chloride 10 ml 04/17/21 22:00 04/21/21 10:31 Sodium Chloride 0.9% 10 Ml Flush Syringe IV 10 ml BID MATTHIAS Administration Sodium Chloride 10 ml 04/17/21 11:11 Sodium Chloride 0.9% 10 Ml Flush Syringe IV PRN PRN LINE FLUSH Sodium Chloride 50 ml 04/17/21 21:00 04/20/21 21:19 Sodium Chloride 0.9% 50 Ml Ivpb IV 04/21/21 21:01 50 ml Q24HR@2100 [facility] Administration Nutrition/Malnutrition Assess - Dietary Evaluation Nutrition/Malnutrition Findings: Nutrition Notes Start: 04/18/21 13:24 Freq: Status: Active Protocol: Document 04/18/21 13:24 CW (Rec: 04/18/21 13:33 CW [id number]) Nutrition Notes Need for Assessment generated from: MST Initial or Follow up Assessment Other Pertinent Diagnosis Covid 19 Current Diet Regular Diet Labs/Tests reviewed Pertinent Medications zofran decadron NS 50 ml Height 5 ft Weight 95.254 kg [place] Body Weight (kg) 45.45 BMI 41.0 Weight Status Obese Subjective/Other Information Screen for MST. Pt reports stable weight and UBW of 210 lbs, indicating no weight change. Pt reports having a good appetite and consimung > 75% of meals provided. Pt report shaving not nutritional questions nor concerns. Percent of energy/protein needs met: 100%/100% GI Symptoms None Food Allergy No Current % PO Good (75-100%) Minimum of two criteria No physical signs of malnutrition Is patient on ventilator? No Is Patient Ambulatory and/or Out of Bed Yes REE-([place]-St. Jeor-ambulatory/OOB) [ 2059.252 [id number]] Kcal/Kg value to use for calculation 16 Approximate Energy Requirements Using 1524 kcal/Kg Calculation Used for Recommendations Kcal/kg Additional Notes protein needs: 36 - 45g (0.8 - 1g/kgIBW) fluid needs: 1 ml/kcal Nutrition Intervention Change Diet Order: Continue regualr diet as ordered Anticipated Discharge Needs: Regular diet Revisit per MD consult or patient Sign Off request: Additional Comments S/O for stable weight adn good PO intake
[2021-04-21] MEDS: REMDESIVIR 100 MG in SODIUM CHLORIDE 0.9% 250ML 250 ML IV SCH (21:31)
[2021-04-21] MEDS: SODIUM CHLORIDE 0.9% 50 ML IVPB IV SCH (21:32)
[2021-04-22 07:55] LABS: Blood Urea Nitrogen 13 mg/dL (7-17); Calcium 8.5 mg/dL (8.4-10.2); Hemolysis Index 4
[2021-04-22 08:01] LABS: BUN/Creatinine Ratio 33
[2021-04-22] MEDS: INSULIN REGULAR, HUMAN 100 UNITS/1 ML SUB-Q SCH ×4 (08:20→22:40)
[2021-04-22] MEDS: FAMOTIDINE 20 MG TAB PO SCH ×2 (10:46→22:41)
[2021-04-22] MEDS: ENOXAPARIN 40 MG/0.4 ML INJ SUB-Q SCH (10:46)
[2021-04-22] MEDS: DEXAMETHASONE 4 MG TAB PO SCH (10:47)
--- NOTE | 2021-04-22 14:02 | Progress Note ---
Assessment and Plan Cultures: Blood culture no growth so far A/P: 30-year-old female past medical history morbid obesity presented to the hospital complaining of shortness of breath with associated no patient COVID-19 diagnosis. #Severe COVID-19 pneumonia: Patient presented with a week of symptoms, chest x- ray with diffuse bilateral infiltrates. Inflammatory markers elevated #Acute hypoxemic respiratory failure: Likely secondary to COVID-19 infection. Currently on 8LNC #Morbid obesity: associated with worse COVID outcomes. Recommendations: -Dexamethasone 6 mg IV/PO daily for 10 days -Completed 5 days of remdesivir. -Obtain q48-72h inflammatory markers - ferritin, Ddimer, CRP, LDH -Anticoagulation per hospital protocol -Proning as able Thank you for the consult, we will continue to follow. Pascual Mtz MD [facility] O: [phone] F: [phone] Subjective Date of service: 04/22/21 Interval history: Afebrile, normal white count. Stable O2 requirements. Objective - Exam Narrative Exam: Physical exam deferred to reduce risk of transmission of COVID-19. Please refer to primary team's note. - Constitutional Vitals: Vital Signs Temp Pulse Resp BP Pulse Ox 97.4 F L 98 H 19 116/74 95 04/22/21 10:54 04/22/21 10:54 04/22/21 10:54 04/22/21 10:54 04/22/21 10:54 Temperature -Last 24 Hours Temperature 97.4 F Temperature 98.1 F Temperature 97.8 F Temperature 98.1 F - Labs CBC & Chem 7: 04/19/21 06:45 04/22/21 07:00 Labs: Abnormal lab results 04/21/21 04/21/21 04/22/21 Range/Units 16:22 23:15 07:00 Creatinine 0.4 L (0.6-1.2) mg/dL Glucose 196 H (65-100) mg/dL POC Glucose 154 H 211 H (70-105) mg/dL 04/22/21 04/22/21 Range/Units 07:38 10:55 Creatinine (0.6-1.2) mg/dL Glucose (65-100) mg/dL POC Glucose 167 H 173 H (70-105) mg/dL
--- NOTE | 2021-04-22 16:05 | Progress Note ---
Assessment and Plan Assessment and plan: 30-year-old female with no significant past medical history presented with worsening dyspnea at rest after his positive for COVID-19 on 04/12. #COVID-19 pneumonia #Acute hypoxic respiratory failure #Community-acquired pneumonia -Currently on high flow nasal cannula 8 L, maintaining O2 saturations greater than 95%; decreased to 4L -will continue to wean O2 as tolerated; home oxygen evaluation ordered -Status post ABX for CAP coverage -continue Decadron 8 mg x 10 days (last day 04/26) -s/p remdesivir #Asymptomatic bacteriuria -Resolved -Status post Rocephin #Hyperglycemia -A1c ordered, not collected -most likely secondary to steroid administration -will continue to monitor #Morbid obesity #Weight loss counseling #Dietary counseling -BMI 41 -Discussed small dietary changes that would aid in weight loss and increased physical activity. Patient expressed understanding -Time +15 minutes Disposition Plan: Home Total Time Spent with Patient (Minutes): 20 minutes History Interval history: No acute events overnight. Patient reports no longer having shortness of breath ambulation. Continuously removed her nasal cannula overnight. Hospitalist Physical - Physical exam Narrative exam: GENERAL: Well-developed well-nourished. Sitting on the side of the bed in no acute distress. HEENT: Normocephalic, atraumatic. CHEST/LUNGS: Coarse breath sounds bilaterally. HEART/CARDIOVASCULAR: RRR. No murmur, rubs or gallops appreciated. ABDOMEN: +BS. NT/ND. SKIN: No rashes noted NEURO: No focal motor deficit. Follows all commands. EXTREMITIES: No cyanosis, clubbing or edema. PSYCH: Cooperative. - Constitutional Vitals: Temp Pulse Resp BP Pulse Ox 98.0 F 72 18 95/64 97 04/22/21 15:24 04/22/21 15:24 04/22/21 15:24 04/22/21 15:24 04/22/21 15:24 General appearance: Present: no acute distress, well-nourished, obese HEART Score - HEART Score Troponin: Troponin T < 0.010 ng/mL (0.00-0.029) 04/17/21 07:07 Results - Labs CBC & Chem 7: 04/19/21 06:45 04/22/21 07:00 Labs: Laboratory Last Values WBC 5.3 K/mm3 (4.5-11.0) 04/19/21 06:45 RBC 4.96 M/mm3 (3.65-5.03) 04/19/21 06:45 Hgb 14.7 gm/dl (10.1-14.3) H 04/19/21 06:45 Hct 42.7 % (30.3-42.9) 04/19/21 06:45 MCV 86 fl (79-97) 04/19/21 06:45 MCH 30 pg (28-32) 04/19/21 06:45 MCHC 35 % (30-34) H 04/19/21 06:45 RDW 12.6 % (13.2-15.2) L 04/19/21 06:45 Plt Count 201 K/mm3 (140-440) 04/19/21 06:45 Lymph % (Auto) 25.0 % (13.4-35.0) 04/19/21 06:45 [place] % (Auto) 13.4 % (0.0-7.3) H 04/19/21 06:45 Eos % (Auto) 0.0 % (0.0-4.3) 04/19/21 06:45 Baso % (Auto) 0.4 % (0.0-1.8) 04/19/21 06:45 Lymph # (Auto) 1.3 K/mm3 (1.2-5.4) 04/19/21 06:45 [place] # (Auto) 0.7 K/mm3 (0.0-0.8) 04/19/21 06:45 Eos # (Auto) 0.0 K/mm3 (0.0-0.4) 04/19/21 06:45 Baso # (Auto) 0.0 K/mm3 (0.0-0.1) 04/19/21 06:45 Add Manual Diff Complete 04/18/21 07:05 Total Counted 100 04/18/21 07:05 Seg Neutrophils % 61.2 % (40.0-70.0) 04/19/21 06:45 Seg Neuts % (Manual) 40.0 % (40.0-70.0) 04/18/21 07:05 Band Neutrophils % 3.0 % 04/18/21 07:05 Lymphocytes % (Manual) 44.0 % (13.4-35.0) H 04/18/21 07:05 Monocytes % (Manual) 13.0 % (0.0-7.3) H 04/18/21 07:05 Nucleated RBC % Not Reportable 04/18/21 07:05 Seg Neutrophils # 3.2 K/mm3 (1.8-7.7) 04/19/21 06:45 Seg Neutrophils # Man 0.8 K/mm3 (1.8-7.7) L 04/18/21 07:05 Band Neutrophils # 0.1 K/mm3 04/18/21 07:05 Lymphocytes # (Manual) 0.9 K/mm3 (1.2-5.4) L 04/18/21 07:05 Abs React Lymphs (Man) 0.0 K/mm3 04/18/21 07:05 Monocytes # (Manual) 0.3 K/mm3 (0.0-0.8) 04/18/21 07:05 Eosinophils # (Manual) 0.0 K/mm3 (0.0-0.4) 04/18/21 07:05 Basophils # (Manual) 0.0 K/mm3 (0.0-0.1) 04/18/21 07:05 Metamyelocytes # 0.0 K/mm3 04/18/21 07:05 Myelocytes # 0.0 K/mm3 04/18/21 07:05 Promyelocytes # 0.0 K/mm3 04/18/21 07:05 Blast Cells # 0.0 K/mm3 04/18/21 07:05 WBC Morphology Not Reportable 04/18/21 07:05 Hypersegmented Neuts Not Reportable 04/18/21 07:05 Hyposegmented Neuts Not Reportable 04/18/21 07:05 Hypogranular Neuts Not Reportable 04/18/21 07:05 Smudge Cells Not Reportable 04/18/21 07:05 Toxic Granulation Not Reportable 04/18/21 07:05 Toxic Vacuolation Not Reportable 04/18/21 07:05 Dohle Bodies Not Reportable 04/18/21 07:05 Pelger-Huet Anomaly Not Reportable 04/18/21 07:05 Kenney Rods Not Reportable 04/18/21 07:05 Platelet Estimate Not Reportable 04/18/21 07:05 Clumped Platelets Not Reportable 04/18/21 07:05 Plt Clumps, EDTA Not Reportable 04/18/21 07:05 Large Platelets Not Reportable 04/18/21 07:05 Giant Platelets Not Reportable 04/18/21 07:05 Platelet Satelliting Not Reportable 04/18/21 07:05 Plt Morphology Comment Not Reportable 04/18/21 07:05 RBC Morphology Not Reportable 04/18/21 07:05 Dimorphic RBCs Not Reportable 04/18/21 07:05 Polychromasia Not Reportable 04/18/21 07:05 Hypochromasia Not Reportable 04/18/21 07:05 Poikilocytosis Not Reportable 04/18/21 07:05 Anisocytosis 1+ 04/18/21 07:05 Microcytosis Not Reportable 04/18/21 07:05 Macrocytosis Not Reportable 04/18/21 07:05 Spherocytes Not Reportable 04/18/21 07:05 Pappenheimer Bodies Not Reportable 04/18/21 07:05 Sickle Cells Not Reportable 04/18/21 07:05 Target Cells Not Reportable 04/18/21 07:05 Tear Drop Cells Not Reportable 04/18/21 07:05 Ovalocytes Not Reportable 04/18/21 07:05 Helmet Cells Not Reportable 04/18/21 07:05 [place] Bodies Not Reportable 04/18/21 07:05 [place] Rings Not Reportable 04/18/21 07:05 Yolanda Cells Not Reportable 04/18/21 07:05 Bite Cells Not Reportable 04/18/21 07:05 Crenated Cell Not Reportable 04/18/21 07:05 Elliptocytes Not Reportable 04/18/21 07:05 Acanthocytes (Spur) Not Reportable 04/18/21 07:05 Rouleaux Not Reportable 04/18/21 07:05 Hemoglobin C Crystals Not Reportable 04/18/21 07:05 Schistocytes Not Reportable 04/18/21 07:05 Malaria parasites Not Reportable 04/18/21 07:05 Rodrigo Bodies Not Reportable 04/18/21 07:05 Hem Pathologist Commnt No 04/18/21 07:05 PT 13.2 Sec. (12.2-14.9) 04/17/21 07:07 INR 0.90 (0.87-1.13) 04/17/21 07:07 APTT 31.5 Sec. (24.2-36.6) 04/17/21 07:07 D-Dimer 511.61 ng/mlDDU (0-234) H 04/20/21 05:47 Sodium 137 mmol/L (137-145) 04/22/21 07:00 Potassium 3.8 mmol/L (3.6-5.0) 04/22/21 07:00 Chloride 101.9 mmol/L (98-107) 04/22/21 07:00 Carbon Dioxide 23 mmol/L (22-30) 04/22/21 07:00 Anion Gap 16 mmol/L 04/22/21 07:00 BUN 13 mg/dL (7-17) 04/22/21 07:00 Creatinine 0.4 mg/dL (0.6-1.2) L 04/22/21 07:00 Estimated GFR > 60 ml/min 04/22/21 07:00 BUN/Creatinine Ratio 33 % 04/22/21 07:00 Glucose 196 mg/dL (65-100) H 04/22/21 07:00 POC Glucose 255 mg/dL (70-105) H 04/22/21 15:25 Hemoglobin A1c 6.0 % (4-6) 04/18/21 07:05 Lactic Acid 1.20 mmol/L (0.7-2.0) 04/17/21 07:07 Calcium 8.5 mg/dL (8.4-10.2) 04/22/21 07:00 Phosphorus 3.00 mg/dL (2.5-4.5) 04/19/21 06:45 Magnesium 2.00 mg/dL (1.7-2.3) 04/19/21 06:45 Ferritin 256.3 ng/mL (10.0-200.0) H 04/20/21 05:47 Total Bilirubin 0.20 mg/dL (0.1-1.2) 04/20/21 05:47 AST 24 units/L (5-40) 04/20/21 05:47 ALT 46 units/L (7-56) 04/20/21 05:47 Alkaline Phosphatase 57 units/L (35-129) 04/20/21 05:47 Lactate Dehydrogenase 315 units/L (91-180) H 04/18/21 07:05 Troponin T < 0.010 ng/mL (0.00-0.029) 04/17/21 07:07 C-Reactive Protein 0.30 mg/dL (0.00-1.30) 04/20/21 05:47 NT-Pro-B Natriuret Pep < 5 pg/mL (0-450) 04/17/21 07:07 Total Protein 6.6 g/dL (6.3-8.2) 04/20/21 05:47 Albumin 3.4 g/dL (3.9-5) L 04/20/21 05:47 Albumin/Globulin Ratio 1.1 % 04/20/21 05:47 Triglycerides 48 mg/dL (2-149) 04/18/21 07:05 Cholesterol 87 mg/dL (50-199) 04/18/21 07:05 LDL Cholesterol Direct 42 mg/dL (50-130) L 04/18/21 07:05 HDL Cholesterol 28 mg/dL (40-59) L 04/18/21 07:05 Cholesterol/HDL Ratio 3.10 % 04/18/21 07:05 Procalcitonin < 0.05 ng/mL (<0.15) 04/21/21 07:54 Urine Color Francheska (Yellow) 04/17/21 06:58 Urine Turbidity Slightly-cloudy (Clear) 04/17/21 06:58 Urine pH 6.0 (5.0-7.0) 04/17/21 06:58 Ur Specific Garibaldi 1.024 (1.003-1.030) 04/17/21 06:58 Urine Protein 100 mg/dl mg/dL (Negative) 04/17/21 06:58 Urine Glucose (UA) Neg mg/dL (Negative) 04/17/21 06:58 Urine Ketones Tr mg/dL (Negative) 04/17/21 06:58 Urine Blood Neg (Negative) 04/17/21 06:58 Urine Nitrite Neg (Negative) 04/17/21 06:58 Urine Bilirubin Neg (Negative) 04/17/21 06:58 Urine Urobilinogen < 2.0 mg/dL (<2.0) 04/17/21 06:58 Ur Leukocyte Esterase Neg (Negative) 04/17/21 06:58 Urine WBC (Auto) 14.0 /HPF (0.0-6.0) H 04/17/21 06:58 Urine RBC (Auto) 26.0 /HPF (0.0-6.0) 04/17/21 06:58 U Epithel Cells (Auto) 24.0 /HPF (0-13.0) H 04/17/21 06:58 Urine Bacteria (Auto) 2+ /HPF (Negative) 04/17/21 06:58 Urine Yeast (Budding) Few /HPF 04/17/21 06:58 Coronavirus (PCR) Positive (Negative) A 04/17/21 Unknown Microbiology: Microbiology 04/17/21 07:07 Peripheral/Venous Blood Culture - Final NO GROWTH AFTER 5 DAYS 04/17/21 07:07 Peripheral/Venous Blood Culture - Final NO GROWTH AFTER 5 DAYS Colindres/IV: Voiding Method Toilet Active Medications - Current Medications Current Medications: Generic Name Dose Route Start Last Admin Trade Name Freq PRN Reason Stop Dose Admin Al Hydrox/Mg Hydrox/Simethicone 30 ml 04/18/21 04:45 04/18/21 05:28 Alum-Mag Hydroxide-Simethicone 176-096-90yn/5ml Oral Liqd 30 Ml PO 30 ml Q6H PRN Administration Indigestion Dexamethasone 8 mg 04/17/21 16:00 04/22/21 10:47 Dexamethasone 4 Mg Tab PO 04/26/21 10:01 8 mg DAILY MATTHIAS Administration Dextrose 50 ml 04/17/21 11:11 Dextrose 50% In Water (25gm) 50 Ml Syringe IV Q30MIN PRN Hypoglycemia Protocol Docusate Sodium 100 mg 04/17/21 11:11 Docusate Sodium 100 Mg Cap PO BID PRN Constipation Enoxaparin Sodium 40 mg 04/18/21 10:00 04/22/21 10:46 Enoxaparin 40 Mg/0.4 Ml Inj SUB-Q 40 mg QDAY MATTHIAS Administration Famotidine 20 mg 04/17/21 22:00 04/22/21 10:46 Famotidine 20 Mg Tab PO 20 mg BID MATTHIAS Administration Insulin Human Regular 0 units 04/17/21 12:00 04/22/21 13:00 Insulin Regular, Human 100 Units/1 Ml SUB-Q 1 units ACHS MATTHIAS Administration Protocol Morphine Sulfate 4 mg 04/17/21 11:11 Morphine 4 Mg/1 Ml Inj IV Q4H PRN Pain , Severe (7-10) Ondansetron HCl 4 mg 04/17/21 11:11 04/18/21 12:56 Ondansetron 4 Mg/2 Ml Inj IV 4 mg Q8H PRN Administration Nausea And Vomiting Senna 8.6 mg 04/17/21 11:11 Sennosides 8.6 Mg Tab PO Q12HR PRN Constipation Sodium Chloride 10 ml 04/17/21 22:00 04/22/21 10:47 Sodium Chloride 0.9% 10 Ml Flush Syringe IV 10 ml BID MATTHIAS Administration Sodium Chloride 10 ml 04/17/21 11:11 Sodium Chloride 0.9% 10 Ml Flush Syringe IV PRN PRN LINE FLUSH Nutrition/Malnutrition Assess - Dietary Evaluation Nutrition/Malnutrition Findings: Nutrition Notes Start: 04/18/21 13:24 Freq: Status: Active Protocol: Document 04/18/21 13:24 CW (Rec: 04/18/21 13:33 CW [id number]) Nutrition Notes Need for Assessment generated from: MST Initial or Follow up Assessment Other Pertinent Diagnosis Covid 19 Current Diet Regular Diet Labs/Tests reviewed Pertinent Medications zofran decadron NS 50 ml Height 5 ft Weight 95.254 kg [place] Body Weight (kg) 45.45 BMI 41.0 Weight Status Obese Subjective/Other Information Screen for MST. Pt reports stable weight and UBW of 210 lbs, indicating no weight change. Pt reports having a good appetite and consimung > 75% of meals provided. Pt report shaving not nutritional questions nor concerns. Percent of energy/protein needs met: 100%/100% GI Symptoms None Food Allergy No Current % PO Good (75-100%) Minimum of two criteria No physical signs of malnutrition Is patient on ventilator? No Is Patient Ambulatory and/or Out of Bed Yes REE-(Jones-St. or-ambulatory/OOB) [ 9.252 NUTR.[id number]] Kcal/Kg value to use for calculation 16 Approximate Energy Requirements Using 1524 kcal/Kg Calculation Used for Recommendations Kcal/kg Additional Notes protein needs: 36 - 45g (0.8 - 1g/kgIBW) fluid needs: 1 ml/kcal Nutrition Intervention Change Diet Order: Continue regualr diet as ordered Anticipated Discharge Needs: Regular diet Revisit per MD consult or patient Sign Off request: Additional Comments S/O for stable weight adn good PO intake
[2021-04-23 06:37] VITALS: BP 116/59
--- NOTE | 2021-04-23 07:27 | Discharge Summary ---
Providers - Providers Date of Admission: 04/17/21 11:12 Date of discharge: 04/23/21 Attending physician: KAITLYNN TY MD 04/17/21 13:39 Consult to Physician [CONS] Routine Comment: Consulting Provider: ERIC SALAS Physician Instructions: Reason For Exam: Remdesivir initiation Primary care physician: LOREN RUELAS MD Hospitalization Condition: Stable Disposition: 30 STILL A PATIENT Exam - Constitutional Vitals: Temp Pulse Resp BP Pulse Ox 97.7 F 51 L 18 116/59 95 04/23/21 05:03 04/23/21 05:03 04/23/21 05:03 04/23/21 05:03 04/23/21 05:03 Plan Care Plan Goals: Finish steroid course. Use pulse oximetry at home, if your oxygen level is consistently less than 90% please return. Follow up with primary care doctor. Assessment: Patient admitted with acute hypoxic respiratory failure secondary to COVID-19 Pneumonia. She was started on remdesivir, steroids and empiric antibiotics. Antibiotics were discontinued. Remdesivir was completed. She improved clinically and was able to be weaned to room air. She was discharged home with a steroid course to complete by 04/26. Follow up with: LOREN RUELAS MD [Primary Care Provider] - 3-5 Days Prescriptions: dexAMETHasone [Decadron] 8 mg PO DAILY 3 Days #6 tablet
[2021-04-23] MEDS: INSULIN REGULAR, HUMAN 100 UNITS/1 ML SUB-Q SCH (08:45)
[2021-04-23] MEDS: ENOXAPARIN 40 MG/0.4 ML INJ SUB-Q SCH (09:11)
[2021-04-23] MEDS: DEXAMETHASONE 4 MG TAB PO SCH (09:11)
[2021-04-23] MEDS: FAMOTIDINE 20 MG TAB PO SCH (09:11)
--- NOTE | 2021-04-23 10:28 | Progress Note ---
Assessment and Plan Cultures: Blood culture no growth so far A/P: 30-year-old female past medical history morbid obesity presented to the hospital complaining of shortness of breath with associated no patient COVID-19 diagnosis. #Severe COVID-19 pneumonia: Patient presented with a week of symptoms, chest x- ray with diffuse bilateral infiltrates. Inflammatory markers elevated #Acute hypoxemic respiratory failure: Likely secondary to COVID-19 infection. Currently on room air. #Morbid obesity: associated with worse COVID outcomes. Recommendations: -Dexamethasone 6 mg IV/PO daily for 10 days -Completed 5 days of remdesivir. -Obtain q48-72h inflammatory markers - ferritin, Ddimer, CRP, LDH -Anticoagulation per hospital protocol -Proning as able Thank you for the consult, we will sign off. Please call questions. Pascual Mtz MD [facility] O: [phone] F: [phone] Subjective Date of service: 04/23/21 Interval history: Afebrile, normal white count. Currently on room air. Objective - Exam Narrative Exam: Physical exam deferred to reduce risk of transmission of COVID-19. Please refer to primary team's note. - Constitutional Vitals: Vital Signs Temp Pulse Resp BP Pulse Ox 97.7 F 51 L 18 116/59 95 04/23/21 05:03 04/23/21 05:03 04/23/21 05:03 04/23/21 05:03 04/23/21 05:03 Temperature -Last 24 Hours Temperature 97.7 F Temperature 97.6 F Temperature 98.0 F Temperature 97.4 F - Labs CBC & Chem 7: 04/19/21 06:45 04/22/21 07:00 Labs: Abnormal lab results 04/22/21 04/22/21 04/22/21 Range/Units 10:55 15:25 21:46 POC Glucose 173 H 255 H 253 H (70-105) mg/dL 04/23/21 Range/Units 08:08 POC Glucose 111 H (70-105) mg/dL
== END 2021-04-23 12:17 | disposition home or self-care (01) | DRG 177 ==
LOC: ED 05:46 → 3A 11:12
PROVIDERS: ADMIT Student in an Organized Health Care Education/Training Program; ATTEND Student in an Organized Health Care Education/Training Program
PROC: XW033E5 Introduction of Remdesivir Anti-infective into Peripheral Vein, Percutaneous Approach, New Technology Group 5 (ICD-10-PCS; principal; 2021-04-17)
DX: U07.1 COVID-19 (principal); J96.01 Acute respiratory failure with hypoxia; J12.82 Pneumonia due to coronavirus disease 2019; N39.0 Urinary tract infection, site not specified; Z68.41 Body mass index [BMI] 40.0-44.9, adult; R73.9 Hyperglycemia, unspecified; R82.71 Bacteriuria; E66.01 Morbid (severe) obesity due to excess calories; Z82.49 Family history of ischemic heart disease and other diseases of the circulatory system
CPT/HCPCS: 36415; 71045; 71275; 80048; 80053; 80061; 81001; 82140; 82728; 82962; 83036; 83615; 83735; 83880; 84100; 84145; 84484; 85007; 85025; 85379; 85610; 85730; 86140; 87040; 87086; 94760; G0378; J0456; J0696; J1650; J1815; J2405; J7050; J8540; Q9967; U0003

== ENCOUNTER 2022-01-27 21:02 | Emergency (ER) | payer BC, MEDICAID ==
[2022-01-28] MEDS ORDERED: MUPIROCIN 2% OINT 22 GM TP ONE (02:06)
[2022-01-28] MEDS ORDERED: TETANUS,DIPH,PERTUSS(ACELL) VACCINE 0.5 ML SYRINGE IM ONE (02:06)
[2022-01-28] MEDS ORDERED: KETOROLAC 60 MG/2 ML INJ IM STA (02:06)
[2022-01-28] MEDS ORDERED: LET TOPICAL (LIDOCAINE/EPINEPHRINE/TETRACAINE) 3 ML TP STA (02:06)
[2022-01-28 04:50] VITALS: BP 138/85
== END 2022-01-28 04:53 | disposition home or self-care (01) ==
LOC: ED 21:02
DX: T14.8XXA Other injury of unspecified body region, initial encounter (principal); Z53.21 Procedure and treatment not carried out due to patient leaving prior to being seen by health care provider
CPT/HCPCS: 90715; J1885